=== PATIENT | female | born 1995 | race Caucasian/White ===

== ENCOUNTER 2022-01-02 15:41 | Emergency (ER) | payer MEDICAID ==
[~2022-01-02] VITALS: Ht 160 cm; Wt 113.0 kg
[2022-01-02] MEDS ORDERED: DOXY100T2 PO (16:06)
--- NOTE | 2022-01-02 16:06 | ED Integumentary General ---
General Source: patient Exam Limitations: no limitations History of Present Illness Date Seen by Provider: Jan 02, 2022 Time Seen by Provider: 15:55 Initial Comments Patient to the ER by private conveyance from home with chief complaint that just prior to arrival her aunts cat scratched her up. The cat is and has been cantankerous lately but acting normally. It is up-to-date on rabies vaccination. She has an allergy to tetanus vaccination. She had her last menstrual period 12/22/2021. She is on oral contraceptives. Allergies and Home Medications Patient Home Medication List Home Medication List Reviewed: Yes Review of Systems Review of Systems Constitutional: No chills, No diaphoresis EENTM: No ear discharge, No ear pain Respiratory: No cough, No short of breath Cardiovascular: No chest pain, No edema Gastrointestinal: No abdominal pain, No constipation Genitourinary: No discharge, No dysuria All Other Systems Reviewed Negative Unless Noted: Yes Past Pxgihuu-Lfthjj-Caoaus Hx Patient Social History Tobacco Use?: No Use of E-Cig and/or Vaping dev: Yes E-Cig or Vaping type used: Other Substance use?: Yes Substance type: Marijuana Alcohol Use?: Yes Alcohol type: Beer Alcohol Frequency: Rarely Physical Exam Vital Signs Capillary Refill : General Appearance: WD/WN, no apparent distress HEENT: PERRL/EOMI, normal ENT inspection, TMs normal, pharynx normal Neck: non-tender, full range of motion, supple, normal inspection Cardiovascular: normal peripheral pulses, regular rate, rhythm Respiratory: lungs clear, normal breath sounds, no respiratory distress, no acc essory muscle use Skin: other (Superficial scratches with mild erythematous tenderness around her left forearm dorsal side and on her left shoulder. No palpable foreign object. No purulence or surrounding erythema.) Progress/Results/Core Measures Progress Progress Note : Time: 16:02 Progress Note The patient declined pain films to rule out broken claws. She says she has an allergy to tetanus. The cat is rabies vaccinated and can be watched. She declined to have animal control involved. We gave her return precautions for any symptoms of the cat acting rabid and will put her on an antibiotic to prevent infection, doxycycline twice daily. She is on control and has an LMP 2 weeks ago. Departure Impression Primary Impression: Cat scratch of left forearm Qualified Codes: S50.812A - Abrasion of left forearm, initial encounter; W5 5.03XA - Scratched by cat, initial encounter Disposition: 01 HOME, SELF-CARE Condition: Stable Departure-Patient Inst. Decision time for Depature: 16:04 Referrals: UNKNOWN (PCP/Family) Primary Care Physician Patient Instructions: Skin Abrasions (DC) Add. Discharge Instructions: Keep the wounds clean with regular soap and water only. Do not use hydrogen peroxide, alcohol, iodine or chlorhexidine as this will delay wound healing. Dress the wounds with clean Band-Aids daily as necessary. Doxycycline 1 tablet with food twice a day for 5 days to prevent infection. Watch the cat for the next 10 days and as long as she is acting normally you do not need to do anything differently. If the cat begins to behave in an irrational manner then return to the nearest ER immediately. Scripts Doxycycline Hyclate (Doxycycline Hyclate) 100 Mg Tablet 100 MG PO BID for 5 Days, #10 TAB 0 Refills Prov: LEON GAITAN 01/02/22 LEON GAITAN Jan 02, 2022 16:06
[2022-01-02 16:13] VITALS: BP 124/81
== END 2022-01-02 16:13 | disposition home or self-care (01) ==
LOC: ER 15:49
DX: S50.812A Abrasion of left forearm, initial encounter (principal); W55.03XA Scratched by cat, initial encounter

== ENCOUNTER 2022-09-28 18:34 | Emergency (ER) | payer MEDICARE, MEDICAID ==
[~2022-09-28] VITALS: Ht 160 cm; Wt 116.0 kg
[~2022-09-28 18:34] MED LIST: DOXY100T2 PO
[2022-09-28 19:04] LABS: BILIRUBIN,URINE NEGATIVE (NEGATIVE); CLARITY,URINE CLEAR; COLOR,URINE YELLOW; GLUCOSE, URINE (UA) NEGATIVE (NEGATIVE); KETONES,URINE NEGATIVE (NEGATIVE); LEUKOCYTE ESTERASE ,URINE 1+ (NEGATIVE); NITRITE,URINE POSITIVE (NEGATIVE); PH,URINE 6.5 (5-9); PROTEIN,URINE NEGATIVE (NEGATIVE)
[2022-09-28 19:05] LABS: BASOPHILS # (AUTO) 0.1 10^3/uL (0.0-0.1); BASOPHILS % (AUTO) 0 % (0-10); EOSINOPHILS # (AUTO) 0.4 10^3/uL (0.0-0.3); EOSINOPHILS % (AUTO) 3 % (0-10); HEMATOCRIT 34 % (35-52); HEMOGLOBIN 10.7 g/dL (11.5-16.0); LYMPHOCYTES # (AUTO) 2.3 10^3/uL (1.0-4.0); LYMPHOCYTES % (AUTO) 19 % (12-44); MEAN CORPUSCULAR HEMOGLOBIN 26 pg (25-34); MEAN CORPUSCULAR HGB CONC 31 g/dL (32-36); MEAN CORPUSCULAR VOLUME 82 fL (80-99); MEAN PLATELET VOLUME 10.6 fL (9.0-12.2); MONOCYTES # (AUTO) 0.6 10^3/uL (0.0-1.0); MONOCYTES % (AUTO) 5 % (0-12); NEUTROPHILS # (AUTO) 8.6 10^3/uL (1.8-7.8); NEUTROPHILS % (AUTO) 72 % (42-75); PLATELET COUNT 404 10^3/uL (130-400); WHITE BLOOD COUNT 11.9 10^3/uL (4.3-11.0)
[2022-09-28 19:17] LABS: ALBUMIN 4.2 GM/DL (3.2-4.5); POTASSIUM 3.5 MMOL/L (3.6-5.0)
[2022-09-28 19:19] LABS: CALCIUM 8.7 MG/DL (8.5-10.1)
[2022-09-28 19:20] LABS: TOTAL PROTEIN 7.7 GM/DL (6.4-8.2)
--- NOTE | 2022-09-28 19:20 | ED Abdominal Pain ---
General Chief Complaint: Abdominal/GI Problems Stated Complaint: LOWER ABD PAIN/VOMITING/NAUSEA Nursing Triage Note: RLQ PAIN X3 DAYS WITH NAUSEA. Source of Information: Patient Exam Limitations: No Limitations History of Present Illness Date Seen by Provider: Sep 28, 2022 Time Seen by Provider: 18:40 Initial Comments Patient is a 26-year-old female who presents to the emergency department with right lower quadrant pain for 3 days along with some nausea. Patient denies any fever, chest pain, urinary symptoms. Denies any abnormal vaginal discharge. Denies any recent abdominal trauma. Allergies and Home Medications Allergies Coded Allergies: codeine (Verified Allergy, Severe, HIVES, 09/28/22) Uncoded Allergies: TDAP (Allergy, Unknown, 01/02/22) Patient Home Medication List Home Medication List Reviewed: Yes Ondansetron (Ondansetron Odt) 4 Mg Tab.rapdis, 4 MG SL Q4H PRN for NAUSEA/VOMITING Prescribed by: Senthil Laboy on 09/28/222022 Sulfamethoxazole/Trimethoprim (Bactrim Ds Tablet) 1 Each Tablet, 1 EACH PO BID Prescribed by: Senthil Laboy on 09/28/222022 Discontinued Medications Doxycycline Hyclate (Doxycycline Hyclate) 100 Mg Tablet, 100 MG PO BID Discontinued Reason: No Longer Taking Prescribed by: LEON GAITAN on 01/02/22 1606 Last Action: Discontinued Review of Systems Review of Systems Constitutional: no symptoms reported EENTM: No Symptoms Reported Respiratory: No Symptoms Reported Cardiovascular: No Symptoms Reported Gastrointestinal: See HPI, Abdominal Pain, Nausea Genitourinary: No Symptoms Reported Musculoskeletal: no symptoms reported Skin: no symptoms reported Psychiatric/Neurological: No Symptoms Reported Endocrine: No Symptoms Reported Hematologic/Lymphatic: No Symptoms Reported Past Cvgvlop-Siixro-Vmtdne Hx Patient Social History Tobacco Use?: Yes Use of E-Cig and/or Vaping dev: Yes Substance use?: No Alcohol Use?: Yes Alcohol Frequency: Once in a while Immunizations Up To Date First/Initial COVID19 Vaccinat: 11/14/21 Second COVID19 Vaccination Edwardo: UNKNOWN COVID19 Vaccine Funeral Greeter: MARIANA Past Medical History Last Menstrual Period: Sep 15, 2022 Physical Exam Vital Signs Vital Signs - First Documented 09/28/22 09/28/22 18:40 20:40 Temp 36.3 Pulse 100 Resp 16 B/P (MAP) 145/81 Pulse Ox 99 O2 Delivery Room Air Capillary Refill : Less Than 3 Seconds Height/Weight/BMI Height: '" Weight: lbs. oz. kg; 45.00 BMI Method: General Appearance: WD/WN, no apparent distress HEENT: PERRL/EOMI, normal ENT inspection, TMs normal, pharynx normal Neck: non-tender, full range of motion, supple, normal inspection Respiratory: chest non-tender, lungs clear, normal breath sounds, no respiratory distress Cardiovascular: regular rate, rhythm Gastrointestinal: normal bowel sounds, soft, tenderness Extremities: normal range of motion, non-tender Neurologic/Psychiatric: no motor/sensory deficits, alert, normal mood/affect, oriented x 3 Skin: normal color, warm/dry Progress/Results/Core Measures Results/Orders Lab Results Laboratory Tests Test 09/28/22 18:55 09/28/22 18:59 Range/Units White Blood Count 11.9 H 4.3-11.0 10^3/uL Red Blood Count 4.20 3.80-5.11 10^6/uL Hemoglobin 10.7 L 11.5-16.0 g/dL Hematocrit 34 L 35-52 % Mean Corpuscular Volume 82 80-99 fL Mean Corpuscular Hemoglobin 26 25-34 pg Mean Corpuscular Hemoglobin Concent 31 L 32-36 g/dL Red Cell Distribution Width 15.9 H 10.0-14.5 % Platelet Count 404 H 130-400 10^3/uL Mean Platelet Volume 10.6 9.0-12.2 fL Immature Granulocyte % (Auto) 1 % Neutrophils (%) (Auto) 72 42-75 % Lymphocytes (%) (Auto) 19 12-44 % Monocytes (%) (Auto) 5 0-12 % Eosinophils (%) (Auto) 3 0-10 % Basophils (%) (Auto) 0 0-10 % Neutrophils # (Auto) 8.6 H 1.8-7.8 10^3/uL Lymphocytes # (Auto) 2.3 1.0-4.0 10^3/uL Monocytes # (Auto) 0.6 0.0-1.0 10^3/uL Eosinophils # (Auto) 0.4 H 0.0-0.3 10^3/uL Basophils # (Auto) 0.1 0.0-0.1 10^3/uL Immature Granulocyte # (Auto) 0.1 0.0-0.1 10^3/uL Sodium Level 141 135-145 MMOL/L Potassium Level 3.5 L 3.6-5.0 MMOL/L Chloride Level 108 H 98-107 MMOL/L Carbon Dioxide Level 24 21-32 MMOL/L Anion Gap 9 5-14 MMOL/L Blood Urea Nitrogen 11 7-18 MG/DL Creatinine 0.60 0.60-1.30 MG/DL Estimat Glomerular Filtration Rate 128 BUN/Creatinine Ratio 18 Glucose Level 98 70-105 MG/DL Calcium Level 8.7 8.5-10.1 MG/DL Corrected Calcium 8.5 8.5-10.1 MG/DL Total Bilirubin 0.5 0.1-1.0 MG/DL Aspartate Amino Transf (AST/SGOT) 9 5-34 U/L Alanine Aminotransferase (ALT/SGPT) 12 0-55 U/L Alkaline Phosphatase 106 40-136 U/L Total Protein 7.7 6.4-8.2 GM/DL Albumin 4.2 3.2-4.5 GM/DL Urine Color YELLOW Urine Clarity CLEAR Urine pH 6.5 5-9 Urine Specific [place] 1.025 H 1.016-1.022 Urine Protein NEGATIVE NEGATIVE Urine Glucose (UA) NEGATIVE NEGATIVE Urine Ketones NEGATIVE NEGATIVE Urine Nitrite POSITIVE H NEGATIVE Urine Bilirubin NEGATIVE NEGATIVE Urine Urobilinogen 0.2 < = 1.0 MG/DL Urine Leukocyte Esterase 1+ H NEGATIVE Urine RBC (Auto) NEGATIVE NEGATIVE Urine RBC NONE /HPF Urine WBC 0-2 /HPF Urine Squamous Epithelial Cells 2-5 /HPF Urine Crystals NONE /LPF Urine Bacteria MODERATE H /HPF Urine Casts NONE /LPF Urine Mucus SMALL H /LPF Urine Yeast FEW H /HPF Urine Culture Indicated YES Urine Test NEGATIVE NEGATIVE My Orders Orders - SENTHIL LABOY [employer]CH[employer]UCATION [employer]ER Cbc With Automated Diff (09/28/22 18:53) Comprehensive Metabolic Panel (09/28/22 18:53) Ua Culture If Indicated (09/28/22 18:53) Iv/Invasive Line Insertion .IV INSERT (09/28/22 18:53) Ct Abdomen/Pelvis W (09/28/22 18:53) Hcg,Qualitative Urine (09/28/22 18:53) Iohexol Injection (Omnipaque 350 Mg/Ml 1 (09/28/22 19:45) Di Iv Start (Assessment) .IV start (09/28/22 19:32) Received Contrast (Hold Metformin- Contr (09/28/22 19:45) Ns (Ivpb) (Sodium Chloride 0.9% Ivpb Bag (09/28/22 19:45) Urine Culture (09/28/22 18:59) Medications Given in ED Vital Signs/I&O 09/28/22 09/28/22 18:40 20:40 Temp 36.3 36.8 Pulse 100 91 Resp 16 B/P (MAP) 145/81 Pulse Ox 99 97 O2 Delivery Room Air Room Air Progress Progress Note : Progress Note Patient is nontoxic and well-hydrated on exam. There is some right upper quadrant and suprapubic tenderness to palpation on abdominal exam. No abdominal distention or rigidity. Vital signs are reassuring. Laboratory evaluation with very mild leukocytosis but is otherwise reassuring. CT of the abdomen pelvis reveals no acute abnormality. Urinalysis nitrate positive with bacteriuria. Will treat for UTI with a course of Bactrim. Discussed supportive care and anticipatory guidance. Follow-up with PCP. Return precautions for urgent symptomology discussed. Patient verbalized understanding. Departure Impression Primary Impression: UTI (urinary tract infection) Qualified Codes: N30.00 - Acute cystitis without hematuria Disposition: HOME, SELF-CARE Condition: Stable Departure-Patient Inst. Decision time for Depature: 20:20 Referrals: [facility] [place] (PCP/Family) Primary Care Physician Patient Instructions: Urinary Tract Infection, Adult ED Scripts Ondansetron (Ondansetron Odt) 4 Mg Tab.rapdis 4 MG SL Q4H PRN for NAUSEA/VOMITING for 5 Days, #25 TAB 0 Refills Prov: SENTHIL LABOY APRN 09/28/22 Sulfamethoxazole/Trimethoprim (Bactrim Ds Tablet) 1 Each Tablet 1 EACH PO BID for 5 Days, #10 TAB 0 Refills Prov: SENTHIL LABOY APRN 09/28/22 SENTHIL LABOY APRN Sep 28, 2022 19:20
[2022-09-28 19:22] LABS: BILIRUBIN,TOTAL 0.5 MG/DL (0.1-1.0)
[2022-09-28 19:23] LABS: CREATININE SERUM 0.6 MG/DL (0.60-1.30)
[2022-09-28 19:37] LABS: BACTERIA,URINE MODERATE /HPF; WBC,URINE 0-2 /HPF; YEAST,URINE FEW /HPF
[2022-09-28] MEDS ORDERED: NS 100 ML (IVPB) BAG IV ONE (19:45)
[2022-09-28] MEDS ORDERED: HOLD METFORMIN - RECEIVED CONTRAST 20 ML VIAL IV SCH (19:45)
[2022-09-28] MEDS ORDERED: IOHEXOL 350 MG/ML 100 ML (OMNIPAQUE 350) VIAL IV ONE (19:45)
--- NOTE | 2022-09-28 20:04 | Diagnostic Imaging Report ---
CT ABDOMEN/PELVIS W TECHNIQUE: Multiple contiguous axial images were obtained through the abdomen and pelvis after administration of intravenous contrast. All CT scans use one or more of the following dose optimizing techniques: automated exposure control, MA and/or KvP adjustment based on patient size and exam type or iterative reconstruction. INDICATION: Right upper and lower quadrant pain COMPARISON: None available. FINDINGS: Lower chest: The lung bases are clear. No pericardial or pleural effusion. Peritoneum: No free intraperitoneal air or fluid. Liver and biliary system: The liver is normal. The gallbladder is normal. No biliary duct dilation. Spleen and Pancreas: Spleen is normal. The pancreas enhances normally without mass lesion or peripancreatic inflammatory changes. Adrenals: Normal. tract: The kidneys enhance normally without suspicious mass or obstruction. Urinary bladder is distended without wall thickening. Uterus and ovaries are normal in appearance. GI tract: Stomach is filled with fluid and food debris. No bowel obstruction. No pericolonic inflammatory changes. Normal appendix. Vasculature and Lymph nodes: Normal caliber aorta. No abdominal or pelvic lymphadenopathy. Musculoskeletal: No concerning osseous lesion. IMPRESSION: No acute intra-abdominal abnormality. Dictated by: Dictated on workstation # [id number]
[2022-09-28] MEDS ORDERED: ONDA4TAB11 SL (20:23)
[2022-09-28] MEDS ORDERED: SULF1TAB38 PO (20:23)
[2022-09-28 20:40] VITALS: BP 145/81
== END 2022-09-28 20:43 | disposition home or self-care (01) ==
LOC: EDUNIT# 18:34 → ER 18:37
DX: N39.0 Urinary tract infection, site not specified (principal); F17.290 Nicotine dependence, other tobacco product, uncomplicated; Z32.02 Encounter for pregnancy test, result negative
CPT/HCPCS: 36415; 74177; 80053; 81000; 84703; 85025; 87088

== ENCOUNTER 2022-10-10 13:51 | Emergency (ER) | payer MEDICARE, MEDICAID ==
[~2022-10-10] VITALS: Ht 160 cm; Wt 120.8 kg
[~2022-10-10 13:51] MED LIST changes: +ONDA4TAB11 SL; +SULF1TAB38 PO
[2022-10-10 14:55] LABS: BASOPHILS # (AUTO) 0.1 10^3/uL (0.0-0.1); BASOPHILS % (AUTO) 0 % (0-10); EOSINOPHILS # (AUTO) 0.4 10^3/uL (0.0-0.3); EOSINOPHILS % (AUTO) 3 % (0-10); HEMATOCRIT 34 % (35-52); HEMOGLOBIN 10.3 g/dL (11.5-16.0); LYMPHOCYTES # (AUTO) 2.1 10^3/uL (1.0-4.0); LYMPHOCYTES % (AUTO) 18 % (12-44); MEAN CORPUSCULAR HEMOGLOBIN 25 pg (25-34); MEAN CORPUSCULAR HGB CONC 31 g/dL (32-36); MEAN CORPUSCULAR VOLUME 81 fL (80-99); MEAN PLATELET VOLUME 10.4 fL (9.0-12.2); MONOCYTES # (AUTO) 0.6 10^3/uL (0.0-1.0); MONOCYTES % (AUTO) 6 % (0-12); NEUTROPHILS # (AUTO) 8.3 10^3/uL (1.8-7.8); NEUTROPHILS % (AUTO) 73 % (42-75); PLATELET COUNT 391 10^3/uL (130-400); WHITE BLOOD COUNT 11.5 10^3/uL (4.3-11.0)
--- NOTE | 2022-10-10 14:56 | ED Abdominal Pain ---
General Chief Complaint: OB < 20 WEEKS Stated Complaint: ABD PAIN Nursing Triage Note: PT AMB TO ED BY POV WITH C/O INTERMITTENT LOWER ABD PAIN X 2 DAYS. PT HAS HAD POSITIVE TEST. LMP Sep. Source of Information: Patient Exam Limitations: No Limitations History of Present Illness Date Seen by Provider: Oct 10, 2022 Time Seen by Provider: 14:42 Initial Comments 26-year-old female presents with right lower abdominal pain for the last 2 to 3 days. Patient reports she had a positive test on [place]. Reports last menstrual was 09/15. Denies any vaginal bleeding or abnormal discharge. Denies dysuria, denies nausea, vomiting. Location: RLQ Allergies and Home Medications Allergies Coded Allergies: codeine (Verified Allergy, Severe, HIVES, 09/28/22) Uncoded Allergies: TDAP (Allergy, Unknown, 01/02/22) Patient Home Medication List Home Medication List Reviewed: Yes Metronidazole (Metronidazole) 500 Mg Tablet, 500 MG PO BID Prescribed by: Linda Bradford on 10/10/22 1619 Ondansetron (Ondansetron Odt) 4 Mg Tab.rapdis, 4 MG SL Q4H PRN for NAUSEA/VOMITING Prescribed by: Senthil Laboy on 09/28/222022 Sulfamethoxazole/Trimethoprim (Bactrim Ds Tablet) 1 Each Tablet, 1 EACH PO BID Prescribed by: Senthil Laboy on 09/28/222022 Review of Systems Review of Systems Constitutional: see HPI Past Mvmlehf-Vawsvg-[place] Hx Patient Social History Tobacco Use?: No Use of E-Cig and/or Vaping dev: No Substance use?: No Alcohol Use?: No Pt feels they are or have been: No Immunizations Up To Date Influenza Vaccine Up-to-Date: Yes; Up-to-Date First/Initial COVID19 Vaccinat: UNKNOWN Second COVID19 Vaccination Edwardo: UNKNOWN Third COVID19 Vaccination Date: UNKNOWN Past Medical History Surgery/Hospitalization HX: TONSILECTOMY Last Menstrual Period: Sep 15, 2022 Physical Exam Vital Signs Vital Signs - First Documented 10/10/22 14:02 Temp 37.0 Pulse 96 Resp 16 B/P (MAP) 137/84 (101) Pulse Ox 97 O2 Delivery Room Air Capillary Refill : Less Than 3 Seconds Height/Weight/BMI Height: '" Weight: lbs. oz. kg; 47.00 BMI Method: General Appearance: WD/WN, no apparent distress Neck: supple, normal inspection Respiratory: lungs clear, normal breath sounds, no respiratory distress, no accessory muscle use Cardiovascular: regular rate, rhythm, no edema, no gallop, no JVD, no murmur Gastrointestinal: normal bowel sounds, soft, no organomegaly, no pulsatile mass, tenderness (RLQ near groin) Extremities: normal range of motion, normal inspection Pelvic: normal external exam, discharge, other (closed os) Neurologic/Psychiatric: alert, normal mood/affect, oriented x 3 Skin: normal color, warm/dry Progress/Results/Core Measures Results/Orders Lab Results Laboratory Tests Test 10/10/22 14:30 10/10/22 14:47 10/10/22 15:40 Range/Units Urine Color YELLOW Urine Clarity CLEAR Urine pH 7.0 5-9 Urine Specific [place] 1.020 1.016-1.022 Urine Protein NEGATIVE NEGATIVE Urine Glucose (UA) NEGATIVE NEGATIVE Urine Ketones NEGATIVE NEGATIVE Urine Nitrite NEGATIVE NEGATIVE Urine Bilirubin NEGATIVE NEGATIVE Urine Urobilinogen 1.0 < = 1.0 MG/DL Urine Leukocyte Esterase NEGATIVE NEGATIVE Urine RBC (Auto) NEGATIVE NEGATIVE Urine RBC RARE /HPF Urine WBC RARE /HPF Urine Squamous Epithelial Cells 0-2 /HPF Urine Crystals NONE /LPF Urine Bacteria NEGATIVE /HPF Urine Casts NONE /LPF Urine Mucus NEGATIVE /LPF Urine Culture Indicated NO White Blood Count 11.5 H 4.3-11.0 10^3/uL Red Blood Count 4.14 3.80-5.11 10^6/uL Hemoglobin 10.3 L 11.5-16.0 g/dL Hematocrit 34 L 35-52 % Mean Corpuscular Volume 81 80-99 fL Mean Corpuscular Hemoglobin 25 25-34 pg Mean Corpuscular Hemoglobin Concent 31 L 32-36 g/dL Red Cell Distribution Width 16.0 H 10.0-14.5 % Platelet Count 391 130-400 10^3/uL Mean Platelet Volume 10.4 9.0-12.2 fL Immature Granulocyte % (Auto) 0 % Neutrophils (%) (Auto) 73 42-75 % Lymphocytes (%) (Auto) 18 12-44 % Monocytes (%) (Auto) 6 0-12 % Eosinophils (%) (Auto) 3 0-10 % Basophils (%) (Auto) 0 0-10 % Neutrophils # (Auto) 8.3 H 1.8-7.8 10^3/uL Lymphocytes # (Auto) 2.1 1.0-4.0 10^3/uL Monocytes # (Auto) 0.6 0.0-1.0 10^3/uL Eosinophils # (Auto) 0.4 H 0.0-0.3 10^3/uL Basophils # (Auto) 0.1 0.0-0.1 10^3/uL Immature Granulocyte # (Auto) 0.0 0.0-0.1 10^3/uL Sodium Level 138 135-145 MMOL/L Potassium Level 3.8 3.6-5.0 MMOL/L Chloride Level 106 98-107 MMOL/L Carbon Dioxide Level 24 21-32 MMOL/L Anion Gap 8 5-14 MMOL/L Blood Urea Nitrogen 11 7-18 MG/DL Creatinine 0.64 0.60-1.30 MG/DL Estimat Glomerular Filtration Rate 126 BUN/Creatinine Ratio 17 Glucose Level 91 70-105 MG/DL Calcium Level 9.4 8.5-10.1 MG/DL Corrected Calcium 9.4 8.5-10.1 MG/DL Total Bilirubin 0.4 0.1-1.0 MG/DL Aspartate Amino Transf (AST/SGOT) 14 5-34 U/L Alanine Aminotransferase (ALT/SGPT) 21 0-55 U/L Alkaline Phosphatase 82 40-136 U/L Total Protein 7.6 6.4-8.2 GM/DL Albumin 4.0 3.2-4.5 GM/DL Human Chorionic Gonadotropin, Quant 1728 H <5 MIU/ML Micro Results Microbiology 10/10/22 Wet Prep - Final, Complete My Orders Orders - LINDA BRADFORD APRN Cbc With Automated Diff (10/10/22 14:41) Hcg,Quantitative (10/10/22 14:41) Abo Rh Type (10/10/22 14:41) Comprehensive Metabolic Panel (10/10/22 14:41) Ua Culture If Indicated (10/10/22 14:41) Urine Bedside (10/10/22 14:56) Wet Prep (10/10/22 15:42) Neisseria Gonorrhea Swab (10/10/22 15:42) Chlamydia Trachomatis Swab (10/10/22 15:42) Metronidazole Tablet (Flagyl Tablet) (10/10/22 16:15) Medications Given in ED Current Medications Medications Dose Ordered Sig/Vinod Route Start Time Stop Time Status Last Admin Dose Admin Metronidazole 500 mg ONCE ONCE PO 10/10/22 16:15 10/10/22 16:16 DC 10/10/22 16:12 500 MG Vital Signs/I&O 10/10/22 10/10/22 14:02 16:19 Temp 37.0 Pulse 96 108 Resp 16 16 B/P (MAP) 137/84 (101) 135/63 Pulse Ox 97 98 O2 Delivery Room Air Room Air Blood Pressure Mean: 101 Progress Progress Note #1: Time: 14:42 Progress Note Patient seen and evaluated. CBC, CMP, hCG, UA, Abo Rh Type ordered. Progress Note #2: Time: :43 Progress Note Lab results discussed with patient. Informed patient of normal hCG level. Pelvic exam completed with David NEUMANN aligner. Cervix is closed. Moderate amount of white/yellow discharge noted. Swabs obtained for wet mount and GC ch lamydia. Progress Note #3: Time: 16:10 Progress Note Clue cells noted to wet mount. First dose of Flagyl ordered here. Will send prescription for Flagyl. Progress Note #4: Time: 16:17 Progress Note Test results discussed with patient. Instructed to take full course of antibiotic, not to stop antibiotic if she begins to feel better. Return precautions provided. Patient struck to follow-up with [facility] she has an appointment on October 15. Departure Impression Primary Impression: Bacterial vaginosis Additional Impression: Qualified Codes: Z3A.01 - Less than 8 weeks gestation of Disposition: HOME, SELF-CARE Condition: Stable Departure-Patient Inst. Referrals: [facility] (PCP/Family) Primary Care Physician Patient Instructions: Bacterial Vaginosis (DC), - The First Month Add. Discharge Instructions: You have bacterial vaginosis. This is an infection of the vagina. I prescribed Flagyl, please take entire course of medication. Do not stop antibiotic if you begin to feel better. Follow-up with your [facility]. Return if you have any new or concerning symptoms, worsening abdominal pain, vaginal bleeding. All discharge instructions reviewed with patient and/or family. Voiced understanding. Scripts Metronidazole (Metronidazole) 500 Mg Tablet 500 MG PO BID for 7 Days, #14 TAB 0 Refills Prov: LINDA BRADFORD APRN 10/10/22 LINDA BRADFORD APRN Oct 10, 2022 14:56
[2022-10-10 15:03] LABS: POTASSIUM 3.8 MMOL/L (3.6-5.0)
[2022-10-10 15:04] LABS: CALCIUM 9.4 MG/DL (8.5-10.1)
[2022-10-10 15:06] LABS: TOTAL PROTEIN 7.6 GM/DL (6.4-8.2)
[2022-10-10 15:07] LABS: BILIRUBIN,TOTAL 0.4 MG/DL (0.1-1.0)
[2022-10-10 15:09] LABS: CREATININE SERUM 0.64 MG/DL (0.60-1.30)
[2022-10-10 15:15] LABS: BILIRUBIN,URINE NEGATIVE (NEGATIVE); CLARITY,URINE CLEAR; COLOR,URINE YELLOW; GLUCOSE, URINE (UA) NEGATIVE (NEGATIVE); KETONES,URINE NEGATIVE (NEGATIVE); LEUKOCYTE ESTERASE ,URINE NEGATIVE (NEGATIVE); NITRITE,URINE NEGATIVE (NEGATIVE); PROTEIN,URINE NEGATIVE (NEGATIVE)
[2022-10-10 15:28] LABS: BACTERIA,URINE NEGATIVE /HPF; RBC,URINE RARE /HPF; SQUAMOUS EPITHELIAL CELL,UR 0-2 /HPF; WBC,URINE RARE /HPF
[2022-10-10] MEDS ORDERED: metroNIDAZOLE 500 MG (FLAGYL) TAB PO ONE (16:15)
[2022-10-10 16:19] VITALS: BP 135/63
[2022-10-10] MEDS ORDERED: METR-145 PO (16:19)
== END 2022-10-10 16:19 | disposition home or self-care (01) ==
LOC: EDUNIT# 13:51 → ER 13:54
DX: O23.591 Infection of other part of genital tract in pregnancy, first trimester (principal); Z3A.01 Less than 8 weeks gestation of pregnancy
CPT/HCPCS: 36415; 80053; 81000; 84702; 84703; 85025; 86900; 86901; 87210; 87491; 87591; 99284

== ENCOUNTER 2022-11-02 19:49 | Emergency (ER) | payer MEDICARE, MEDICAID ==
[~2022-11-02] VITALS: Ht 160 cm; Wt 117.0 kg
[~2022-11-02 19:49] MED LIST changes: +METR-145 PO
[2022-11-02 20:00] VITALS: BP 119/82
--- NOTE | 2022-11-02 20:23 | ED EENT ---
History of Present Illness General Chief Complaint: Oral/Throat Problems Stated Complaint: SORE THROAT VAG BLEEDING, 6 WEEKS Nursing Triage Note: PT AMB TO ED BY POV WITH C/O SORE THROAT. PT REPORTS SORE THROAT BEGAN THIS MORNING, HAS NOT TAKEN ANYTHING FOR THE PAIN. PT ALSO C/O VAGINAL SPOTTING X3 DAYS, DENIES ANY ABD PAIN OR CRAMPING. LMP 09/15/22. Source: patient History of Present Illness Date Seen by Provider: Nov 02, 2022 Time Seen by Provider: 20:14 Initial Comments PT ARRIVES VIA POV FROM HOME C/O SORE THROAT SINCE THIS AM NO DIFFICULTY SWALLOWING NO URI SYMPTOMS NO FEVER SHE HAS HAD TONSILLECTOMY A CHILD SHE HAS NOT TAKEN ANYTHING FOR SYMPTOMS PT IS 6 WEEKS , FIRST OB APPOINTMENT 11/22/[address] HUSSEIN. SHE HAS HAD COVID VACCINE X 2, FLU VACCINE X 1 NO KNOWN SICK CONTACTS. PCP: MIA-RONALDO Allergies and Home Medications Allergies Coded Allergies: codeine (Verified Allergy, Severe, HIVES, 09/28/22) Uncoded Allergies: TDAP (Allergy, Unknown, 01/02/22) Patient Home Medication List Home Medication List Reviewed: Yes Metronidazole (Metronidazole) 500 Mg Tablet, 500 MG PO BID Prescribed by: Linda Bradford on 10/10/22 161 Ondansetron (Ondansetron Odt) 4 Mg Tab.rapdis, 4 MG SL Q4H PRN for NAUSEA/VOMITING Prescribed by: Senthil Laboy on 09/28/222022 Sulfamethoxazole/Trimethoprim (Bactrim Ds Tablet) 1 Each Tablet, 1 EACH PO BID Prescribed by: Senthil Laboy on 09/28/222022 Review of Systems Review of Systems Constitutional: no symptoms reported Eyes: No Symptoms Reported Ears: No Symptoms Reported Nose: no symptoms reported Mouth: no symptoms reported Throat: see HPI, pain Respiratory: no symptoms reported Cardiovascular: no symptoms reported Gastrointestinal: no symptoms reported : Yes Musculoskeletal: no symptoms reported Skin: no symptoms reported Neurological: No Symptoms Reported Hematologic/Lymphatic: No Symptoms Reported Past Rdxqzhv-Hwztbh-Cobfed Hx Patient Social History Tobacco Use?: No Use of E-Cig and/or Vaping dev: No Substance use?: No Alcohol Use?: No Pt feels they are or have been: No Immunizations Up To Date Influenza Vaccine Up-to-Date: Yes; Up-to-Date First/Initial COVID19 Vaccinat: YES Second COVID19 Vaccination Edwardo: Y Third COVID19 Vaccination Date: UNKNOWN Past Medical History Surgery/Hospitalization HX: TONSILECTOMY Surgeries: Yes Tonsillectomy Respiratory: No Cardiac: No Neurological: No : Yes Last Menstrual Period: Sep 15, 2022 Reproductive Disorders: No Genitourinary: No Gastrointestinal: No Musculoskeletal: No Endocrine: No HEENT: No Psychosocial: No Integumentary: No Blood Disorders: No Physical Exam Vital Signs Vital Signs - First Documented 11/02/22 20:00 Temp 36.7 Pulse 94 Resp 16 B/P (MAP) 119/82 (94) Pulse Ox 100 O2 Delivery Room Air Height, Weight, BMI Height: '" Weight: lbs. oz. kg; 45.00 BMI Method: General Appearance: WD/WN, no apparent distress, obese, other (DOES NOT APPEAR ILL OR TO BE IN ANY DISCOMFORT OR DISTRESS. TEXTING/PLAYING ON PHONE FOR ENTIRE EXAM, AND FOR ENTIRE ER STAY. ) Eyes: bilateral eye normal inspection Ears: bilateral ear auricle normal Nose: normal inspection Mouth/Throat: No trismus, No uvula swelling, No voice changes; other (VERY MILD PHARYNGEAL ERYTHEMA. NO EXUDATE. NO SWELLING . VOICE NORMAL) Neck: non-tender, full range of motion, supple, normal inspection; No lymphadenopathy (R), No lymphadenopathy (L) Cardiovascular: regular rate, rhythm, no murmur Respiratory: normal breath sounds, no respiratory distress, no accessory muscle use Gastrointestinal: non tender Neurologic/Psychiatric: no motor/sensory deficits, alert, normal mood/affect, oriented x 3 Skin: normal color, warm/dry; No rash Progress/Results/Core Measures Results/Orders Lab Results Laboratory Tests Test 11/02/22 20:27 Range/Units Influenza Type A (RT-PCR) Not Detected Not Detecte Influenza Type B (RT-PCR) Not Detected Not Detecte SARS-CoV-2 RNA (RT-PCR) Detected H Not Detecte Group A Streptococcus Screen NEGATIVE NEGATIVE My Orders Orders - TG BROWN DO Rapid Strep A Screen (11/02/22 20:20) Covid 19 Inhouse Test (11/02/22 20:20) Influenza A And B By Pcr (11/02/22 20:20) Isolation Central Supply Req (11/02/22 20:20) Rx-Nirmatrelvir/Ritonavir(Eua) (Rx-Paxlo (11/02/22 21:30) Vital Signs/I&O 11/02/22 20:00 Temp 36.7 Pulse 94 Resp 16 B/P (MAP) 119/82 (94) Pulse Ox 100 O2 Delivery Room Air Blood Pressure Mean: 94 Progress Progress Note : Progress Note PPE WORN COVID, FLU AND STREP TESTING DONE PT DOES NOT MENTION ANY COMPLAINTS TO ME AT ANY TIME DURING ENTIRE ER STAY. BLOOD TYPE IS AB+, PER PREVIOUS LAB RECORDS. REVIEWED OLD RECORDS--ALL HAVE BEEN ER VISITS. REVIEWED TEST RESULTS, ANTICIPATED COURSE, SYMPTOMATIC TREATMENT, MEDICATIONS, NEED FOR QUARANTINE, NEED FOR FOLLOW UP AND RETURN PRECAUTIONS DISCUSSED PAXLOVID TREATMENT OPTION AND PT WISHES TO START THIS TREATMENT. Departure Impression Primary Impression: COVID-19 virus infection Additional Impression: 6 weeks gestation of Disposition: 01 HOME, SELF-CARE Condition: Stable Departure-Patient Inst. Decision time for Depature: 21:15 Referrals: LEO DIGGS APRN (PCP) Primary Care Physician [facility] [place] Primary Care Physician GARLAND HUSSEIN MD Patient Instructions: COVID-19 and ED, Nirmatrelvir and Ritonavir FDA Fact Sheet, Preventing the Spread of an Infectious Disease Add. Discharge Instructions: QUARANTINE YOURSELF AND ALL HOUSEHOLD MEMBERS X 10 DAYS TYLENOL 1 GRAM EVERY 6 HOURS FOR PAIN OR FEVER OVER THE COUNTER FLONASE OR NASACORT FOR NASAL CONGESTION SALT WATER GARGLES AND CEPACOL LOZENGES FOR THROAT PAIN TAKE PAXLOVID DIRECTED FOLLOW UP WITH YOUR DR IN 3-4 DAYS IF NO BETTER, RETURN TO ER IF SYMPTOMS WORSEN All discharge instructions reviewed with patient and/or family. Voiced understanding. Work/School Note: Work Release Form Date Seen in the Emergency Department: Nov 02, 2022 Return to Work: Nov 12, 2022 TG BROWN DO Nov 02, 2022 20:23
[2022-11-02] MEDS ORDERED: RX-NIRMATRELVIR/RITONAVIR (PAXLOVID) #30 TABS PO SCH (21:30)
== END 2022-11-02 21:35 | disposition home or self-care (01) ==
LOC: EDUNIT# 19:49 → ER 19:50
DX: O98.511 Other viral diseases complicating pregnancy, first trimester (principal); U07.1 COVID-19; Z3A.01 Less than 8 weeks gestation of pregnancy
CPT/HCPCS: 87430; 87636; 99283

== ENCOUNTER 2022-11-14 19:23 | Emergency (ER) | payer MEDICARE, MEDICAID ==
[~2022-11-14] VITALS: Ht 160 cm; Wt 117.0 kg
--- NOTE | 2022-11-14 19:38 | ED Abdominal Pain ---
General Chief Complaint: Abdominal/GI Problems Stated Complaint: UPPER ABDOMINAL PAIN, 8 WEEKS Source of Information: Patient Exam Limitations: No Limitations History of Present Illness Date Seen by Provider: Nov 14, 2022 Time Seen by Provider: 19:30 Initial Comments Patient is a 27-year-old female who presents to the emergency department for evaluation of upper abdominal pain in the context of being approximately 8 weeks . Patient's LMP was 09/13. She has an appointment with her OB later this week. Denies any vaginal bleeding or lower abdominal cramping. Denies any alleviating or exacerbating factors in regards to her pain. States it is mostly in the middle of her upper abdomen. Denies any nausea/vomiting/diarrhea outside of her existing mild nausea that has been present for the last few weeks of her . Denies any worsening with eating. Allergies and Home Medications Allergies Coded Allergies: codeine (Verified Allergy, Severe, HIVES, 09/28/22) Uncoded Allergies: TDAP (Allergy, Unknown, 01/02/22) Patient Home Medication List Home Medication List Reviewed: Yes Metronidazole (Metronidazole) 500 Mg Tablet, 500 MG PO BID Prescribed by: Linda Bradford on 10/10/22 161 Ondansetron (Ondansetron Odt) 4 Mg Tab.rapdis, 4 MG SL Q4H PRN for NAUSEA/VOMITING Prescribed by: Senthil Laboy on 09/28/222022 Sucralfate (Sucralfate) 1 Gram Tablet, 1 GM PO ACHS Prescribed by: Senthil Laboy on 11/14/222033 Sulfamethoxazole/Trimethoprim (Bactrim Ds Tablet) 1 Each Tablet, 1 EACH PO BID Prescribed by: Senthil Laboy on 09/28/222022 Review of Systems Review of Systems Constitutional: no symptoms reported EENTM: No Symptoms Reported Respiratory: No Symptoms Reported Gastrointestinal: See HPI, Abdominal Pain Genitourinary: No Symptoms Reported Musculoskeletal: no symptoms reported Skin: no symptoms reported Psychiatric/Neurological: No Symptoms Reported Endocrine: No Symptoms Reported Hematologic/Lymphatic: No Symptoms Reported Past Mgxqszb-Wvpazl-Euipho Hx Immunizations Up To Date First/Initial COVID19 Vaccinat: YES Second COVID19 Vaccination Edwardo: Y Third COVID19 Vaccination Date: UNKNOWN Past Medical History Surgery/Hospitalization HX: TONSILECTOMY Surgeries: Yes Tonsillectomy Respiratory: No Cardiac: No Neurological: No Reproductive Disorders: No Genitourinary: No Gastrointestinal: No Musculoskeletal: No Endocrine: No HEENT: No Psychosocial: No Integumentary: No Blood Disorders: No Physical Exam Vital Signs Vital Signs - First Documented 11/14/22 19:31 Temp 36.2 Pulse 85 Resp 20 B/P (MAP) 120/63 (82) Pulse Ox 100 O2 Delivery Room Air Capillary Refill : Height/Weight/BMI Height: '" Weight: lbs. oz. kg; 45.00 BMI Method: General Appearance: WD/WN, no apparent distress HEENT: PERRL/EOMI, normal ENT inspection, TMs normal, pharynx normal Neck: non-tender, full range of motion, supple, normal inspection Respiratory: chest non-tender, lungs clear, normal breath sounds, no respira tory distress, no accessory muscle use Cardiovascular: regular rate, rhythm Gastrointestinal: normal bowel sounds, soft, tenderness Neurologic/Psychiatric: no motor/sensory deficits, alert, normal mood/affect, oriented x 3 Skin: normal color, warm/dry Progress/Results/Core Measures Results/Orders Lab Results Laboratory Tests Test 11/14/22 19:52 11/14/22 20:01 Range/Units White Blood Count 11.3 H 4.3-11.0 10^3/uL Red Blood Count 4.10 3.80-5.11 10^6/uL Hemoglobin 10.5 L 11.5-16.0 g/dL Hematocrit 33 L 35-52 % Mean Corpuscular Volume 81 80-99 fL Mean Corpuscular Hemoglobin 26 25-34 pg Mean Corpuscular Hemoglobin Concent 32 32-36 g/dL Red Cell Distribution Width 14.7 H 10.0-14.5 % Platelet Count 361 130-400 10^3/uL Mean Platelet Volume 10.5 9.0-12.2 fL Immature Granulocyte % (Auto) 0 % Neutrophils (%) (Auto) 78 H 42-75 % Lymphocytes (%) (Auto) 15 12-44 % Monocytes (%) (Auto) 4 0-12 % Eosinophils (%) (Auto) 3 0-10 % Basophils (%) (Auto) 0 0-10 % Neutrophils # (Auto) 8.9 H 1.8-7.8 10^3/uL Lymphocytes # (Auto) 1.6 1.0-4.0 10^3/uL Monocytes # (Auto) 0.5 0.0-1.0 10^3/uL Eosinophils # (Auto) 0.3 0.0-0.3 10^3/uL Basophils # (Auto) 0.0 0.0-0.1 10^3/uL Immature Granulocyte # (Auto) 0.0 0.0-0.1 10^3/uL Sodium Level 137 135-145 MMOL/L Potassium Level 3.9 3.6-5.0 MMOL/L Chloride Level 105 98-107 MMOL/L Carbon Dioxide Level 20 L 21-32 MMOL/L Anion Gap 12 5-14 MMOL/L Blood Urea Nitrogen 8 7-18 MG/DL Creatinine 0.61 0.60-1.30 MG/DL Estimat Glomerular Filtration Rate 127 BUN/Creatinine Ratio 13 Glucose Level 85 70-105 MG/DL Calcium Level 9.2 8.5-10.1 MG/DL Corrected Calcium 9.2 8.5-10.1 MG/DL Total Bilirubin 0.5 0.1-1.0 MG/DL Aspartate Amino Transf (AST/SGOT) 14 5-34 U/L Alanine Aminotransferase (ALT/SGPT) 23 0-55 U/L Alkaline Phosphatase 78 40-136 U/L Total Protein 7.8 6.4-8.2 GM/DL Albumin 4.0 3.2-4.5 GM/DL Lipase 15 8-78 U/L Urine Color YELLOW Urine Clarity CLEAR Urine pH 5.0 5-9 Urine Specific [place] 1.020 1.016-1.022 Urine Protein NEGATIVE NEGATIVE Urine Glucose (UA) NEGATIVE NEGATIVE Urine Ketones TRACE H NEGATIVE Urine Nitrite NEGATIVE NEGATIVE Urine Bilirubin NEGATIVE NEGATIVE Urine Urobilinogen 0.2 < = 1.0 MG/DL Urine Leukocyte Esterase 1+ H NEGATIVE Urine RBC (Auto) NEGATIVE NEGATIVE Urine RBC 0-2 /HPF Urine WBC 5-10 H /HPF Urine Squamous Epithelial Cells 25-50 H /HPF Urine Crystals NONE /LPF Urine Bacteria MODERATE H /HPF Urine Casts NONE /LPF Urine Mucus NEGATIVE /LPF Urine Culture Indicated YES Micro Results Microbiology 11/14/22 Urine Culture - Final, Complete Gram Pos Mixed Bacterial Becka See Comments My Orders Orders - SENTHIL LABOY FLOOR PRESS OPERATOR Cbc With Automated Diff (11/14/22 19:37) Comprehensive Metabolic Panel (11/14/22 19:37) Lipase (2/1/23 19:37) Urinalysis (11/14/22 19:37) Urine Culture (11/14/22 20:01) Antacid Suspension (Mylanta Suspension (11/14/22 20:30) Vital Signs/I&O 11/14/22 11/14/22 19:31 20:38 Temp 36.2 Pulse 85 86 Resp 20 20 B/P (MAP) 120/63 (82) 114/68 Pulse Ox 100 99 O2 Delivery Room Air Room Air Progress Progress Note : Progress Note Patient is nontoxic and well-hydrated on exam. Abdominal exam notable for epigastric tenderness to palpation. No rigidity or distention appreciated on abdominal exam. Vital signs are reassuring. Mclain sign negative. Orders placed for CBC, CMP, lipase, urinalysis. CBC notable for very mild leukocytosis and anemia. CMP unremarkable for any significant metabolic derangements. Lipase is not elevated. Urinalysis notable for very mild pyuria as well as moderate bacteria. Large amount of squamous epithelial cells also noted which makes this unlikely to be a clean-catch potentially contaminated. We will await urine culture results to guide any need for antimicrobial therapy. There is no transaminitis or other concerning findings on the diagnostic work-up today. She was given a dose of oral Mylanta with questionable improvement in symptoms. Gastritis/GERD is a possible etiology of symptoms. To this end patient was given a prescription for s ucralfate as this has been documented to be safe in . Discussed importance of close follow-up with PCP and/or [facility] for further evaluation and treatment. Return precautions for urgent symptomology discussed. Patient verbalized understanding. Departure Impression Primary Impression: Epigastric pain Disposition: HOME, SELF-CARE Condition: Stable Departure-Patient Inst. Decision time for Depature: 20:30 Referrals: [facility]/ (PCP) Primary Care Physician LEO DIGGS APRN (Family) Primary Care Physician Patient Instructions: Abdominal Pain, Adult ED Scripts Sucralfate (Sucralfate) 1 Gram Tablet 1 GM PO ACHS for 7 Days, #28 TAB 0 Refills Prov: SENTHIL LABOY APRN 11/14/22 SENTHIL LABOY APRN Nov 14, 2022 19:38
[2022-11-14 20:02] LABS: BASOPHILS % (AUTO) 0 % (0-10); EOSINOPHILS # (AUTO) 0.3 10^3/uL (0.0-0.3); EOSINOPHILS % (AUTO) 3 % (0-10); HEMATOCRIT 33 % (35-52); HEMOGLOBIN 10.5 g/dL (11.5-16.0); LYMPHOCYTES # (AUTO) 1.6 10^3/uL (1.0-4.0); LYMPHOCYTES % (AUTO) 15 % (12-44); MEAN CORPUSCULAR HEMOGLOBIN 26 pg (25-34); MEAN CORPUSCULAR HGB CONC 32 g/dL (32-36); MEAN CORPUSCULAR VOLUME 81 fL (80-99); MEAN PLATELET VOLUME 10.5 fL (9.0-12.2); MONOCYTES # (AUTO) 0.5 10^3/uL (0.0-1.0); MONOCYTES % (AUTO) 4 % (0-12); NEUTROPHILS # (AUTO) 8.9 10^3/uL (1.8-7.8); NEUTROPHILS % (AUTO) 78 % (42-75); PLATELET COUNT 361 10^3/uL (130-400); WHITE BLOOD COUNT 11.3 10^3/uL (4.3-11.0)
[2022-11-14 20:04] LABS: BILIRUBIN,URINE NEGATIVE (NEGATIVE); CLARITY,URINE CLEAR; COLOR,URINE YELLOW; GLUCOSE, URINE (UA) NEGATIVE (NEGATIVE); KETONES,URINE TRACE (NEGATIVE); LEUKOCYTE ESTERASE ,URINE 1+ (NEGATIVE); NITRITE,URINE NEGATIVE (NEGATIVE); PROTEIN,URINE NEGATIVE (NEGATIVE)
[2022-11-14 20:14] LABS: BACTERIA,URINE MODERATE /HPF; RBC,URINE 0-2 /HPF; SQUAMOUS EPITHELIAL CELL,UR 25-50 /HPF
[2022-11-14 20:15] LABS: POTASSIUM 3.9 MMOL/L (3.6-5.0)
[2022-11-14 20:16] LABS: CALCIUM 9.2 MG/DL (8.5-10.1)
[2022-11-14 20:17] LABS: TOTAL PROTEIN 7.8 GM/DL (6.4-8.2)
[2022-11-14 20:19] LABS: BILIRUBIN,TOTAL 0.5 MG/DL (0.1-1.0)
[2022-11-14 20:21] LABS: CREATININE SERUM 0.61 MG/DL (0.60-1.30)
[2022-11-14] MEDS ORDERED: ANTACID SUSP 30 ML UDC (MYLANTA) PO ONE (20:30)
[2022-11-14] MEDS ORDERED: SUCR1TAB PO (20:34)
[2022-11-14 20:38] VITALS: BP 114/68
== END 2022-11-14 20:39 | disposition home or self-care (01) ==
LOC: EDUNIT# 19:23 → ER 19:26
DX: O26.891 Other specified pregnancy related conditions, first trimester (principal); R10.13 Epigastric pain; O99.011 Anemia complicating pregnancy, first trimester; D64.9 Anemia, unspecified; O99.111 Other diseases of the blood and blood-forming organs and certain disorders involving the immune mechanism complicating pregnancy, first trimester; D72.829 Elevated white blood cell count, unspecified; O99.891 Other specified diseases and conditions complicating pregnancy; R82.81 Pyuria; R82.71 Bacteriuria; Z3A.08 8 weeks gestation of pregnancy
CPT/HCPCS: 36415; 80053; 81000; 83690; 85025; 87088; 99283

== ENCOUNTER 2023-03-16 20:55 | Outpatient (CLI) | payer MEDICARE, MEDICAID ==
[~2023-03-16] VITALS: Ht 160 cm; Wt 115.2 kg
[~2023-03-16 20:55] MED LIST changes: +SUCR1TAB PO
[2023-03-16 21:20] VITALS: BP 123/68
[2023-03-16 21:30] VITALS: BP 123/68
[2023-03-16 21:37] LABS: BILIRUBIN,URINE NEGATIVE (NEGATIVE); CLARITY,URINE CLEAR; COLOR,URINE YELLOW; GLUCOSE, URINE (UA) NEGATIVE (NEGATIVE); KETONES,URINE TRACE (NEGATIVE); LEUKOCYTE ESTERASE ,URINE NEGATIVE (NEGATIVE); NITRITE,URINE NEGATIVE (NEGATIVE); PROTEIN,URINE TRACE (NEGATIVE)
[2023-03-16 21:45] VITALS: BP 123/73
[2023-03-16 21:46] LABS: BACTERIA,URINE MODERATE /HPF; RBC,URINE RARE /HPF; WBC,URINE RARE /HPF
[2023-03-16] MEDS ORDERED: LACTATED RINGERS 1,000 ML IV ONE (21:59)
[2023-03-16] MEDS ORDERED: PREN-142 PO (23:54)
[2023-03-17] MEDS ORDERED: LACTATED RINGERS 1,000 ML IV SCH
--- NOTE | 2023-03-18 08:34 | Physician Query-Final Dx ---
JAGDISH,03/18/23 0834: Clinic Account Progress/Dx Physician Query: Please give diagnosis Please include # weeks gestation Date of Service Mar 16, 2023 at 20:55 TEDDY SAUCEDA MD 03/19/23 1045: Clinic Account Progress/Dx DIAGNOSIS: Diagnosis 27 weeks gestation Bleeding in second trimester Abdominal cramping Reassuring status and no regular uterine activity JAGDISH,OctMar 18, 2023 08:34 TEDDY SAUCEDA MD Mar 19, 2023 10:45
== END 2023-03-17 00:05 | disposition home or self-care (01) ==
LOC: WSo 20:55 → LDRP 20:56 → WSo 03-17 00:05
PROVIDERS: ATTEND Family Medicine
DX: O46.92 Antepartum hemorrhage, unspecified, second trimester (principal); O62.9 Abnormality of forces of labor, unspecified; Z3A.27 27 weeks gestation of pregnancy
CPT/HCPCS: 81000; 96360; G0463; 99213

== ENCOUNTER 2023-03-23 17:53 | Outpatient (CLI) | payer MEDICARE, MEDICAID ==
[~2023-03-23] VITALS: Ht 160 cm; Wt 115.8 kg
[~2023-03-23 17:53] MED LIST changes: +PREN-142 PO
[2023-03-23 18:25] VITALS: BP 111/53
[2023-03-23 18:38] LABS: BILIRUBIN,URINE NEGATIVE (NEGATIVE); CLARITY,URINE CLOUDY; COLOR,URINE YELLOW; GLUCOSE, URINE (UA) NEGATIVE (NEGATIVE); KETONES,URINE NEGATIVE (NEGATIVE); LEUKOCYTE ESTERASE ,URINE NEGATIVE (NEGATIVE); NITRITE,URINE NEGATIVE (NEGATIVE); PROTEIN,URINE NEGATIVE (NEGATIVE)
[2023-03-23 18:49] LABS: BACTERIA,URINE TRACE /HPF
[2023-03-23] MEDS ORDERED: LACTATED RINGERS 1,000 ML IV ONE (20:15)
[2023-03-23 21:15] VITALS: BP 109/63
--- NOTE | 2023-03-25 08:24 | Physician Query-Final Dx ---
JAGDISH,03/25/23 0824: Clinic Account Progress/Dx Physician Query: Please give diagnosis Please include # weeks gestation Date of Service Mar 23, 2023 at 17:53 FOREST PARKER DO 04/10/23 0920: Clinic Account Progress/Dx DIAGNOSIS: Diagnosis 29 wk GA contractions/uterine irritability - resolved ,OctMar 25, 2023 08:24 FOREST PARKER DO Apr 10, 2023 09:20
== END 2023-03-23 21:36 | disposition home or self-care (01) ==
LOC: WSo 17:53 → LDRP 17:54 → WSo 21:36
PROVIDERS: ATTEND Family Medicine
DX: O47.03 False labor before 37 completed weeks of gestation, third trimester (principal); Z3A.29 29 weeks gestation of pregnancy
CPT/HCPCS: 81000; G0463; 99213

== ENCOUNTER 2023-03-30 14:25 | Outpatient (CLI) | payer MEDICARE, MEDICAID ==
[~2023-03-30] VITALS: Ht 160 cm; Wt 115.3 kg
[2023-03-30 14:49] LABS: BILIRUBIN,URINE NEGATIVE (NEGATIVE); CLARITY,URINE CLEAR; COLOR,URINE YELLOW; GLUCOSE, URINE (UA) NEGATIVE (NEGATIVE); KETONES,URINE NEGATIVE (NEGATIVE); LEUKOCYTE ESTERASE ,URINE NEGATIVE (NEGATIVE); NITRITE,URINE NEGATIVE (NEGATIVE); PROTEIN,URINE NEGATIVE (NEGATIVE)
[2023-03-30 14:50] VITALS: BP 119/64
[2023-03-30 15:06] LABS: BACTERIA,URINE FEW /HPF
--- NOTE | 2023-04-01 08:34 | Physician Query-Final Dx ---
JAGDISH,04/01/23 0834: Clinic Account Progress/Dx Physician Query: Please give diagnosis Please include # weeks gestation Date of Service Mar 30, 2023 at 14:25 JESSICA CORRALES MD 04/17/23 2144: Clinic Account Progress/Dx DIAGNOSIS: Diagnosis 1. intrauterine third trimesternon-labor 2. Uterine irritabilityreassuring JAGDISH,OctApr 01, 2023 08:34 JESSICA CORRALES MD Apr 17, 2023 21:44
== END 2023-03-30 15:36 | disposition home or self-care (01) ==
LOC: WSo 14:25 → LDRP 14:26 → WSo 15:36
PROVIDERS: ATTEND Family Medicine
DX: Z34.93 Encounter for supervision of normal pregnancy, unspecified, third trimester (principal); Z3A.00 Weeks of gestation of pregnancy not specified
CPT/HCPCS: 81000; 87088; G0463; 99213

== ENCOUNTER 2023-05-25 21:10 | Outpatient (CLI) | payer MEDICAID, MEDICARE ==
[~2023-05-25] VITALS: Ht 156.5 cm; Wt 113.4 kg
[2023-05-25 21:30] VITALS: BP 124/58
[2023-05-25 21:56] LABS: CLARITY,URINE CLEAR; COLOR,URINE YELLOW; PROTEIN,URINE 1+ (NEGATIVE)
[2023-05-25 21:57] LABS: BACTERIA,URINE LARGE /HPF; GLUCOSE, URINE (UA) NEGATIVE (NEGATIVE); KETONES,URINE TRACE (NEGATIVE); LEUKOCYTE ESTERASE ,URINE 1+ (NEGATIVE); NITRITE,URINE NEGATIVE (NEGATIVE); RBC,URINE 0-2 /HPF; SQUAMOUS EPITHELIAL CELL,UR 25-50 /HPF; WBC,URINE 25-50 /HPF
[2023-05-25 21:59] LABS: BILIRUBIN,URINE 1+ (NEGATIVE)
[2023-05-25 22:04] VITALS: BP 119/63
[2023-05-25 22:20] VITALS: BP 115/65
[2023-05-25 22:34] VITALS: BP 111/58
[2023-05-25 22:49] VITALS: BP 112/61
[2023-05-25 23:45] VITALS: BP 112/61
--- NOTE | 2023-05-27 12:00 | Physician Query-Final Dx ---
Clinic Account Progress/Dx Physician Query: Please give diagnosis Please include # weeks gestation Date of Service May 25, 2023 at 21:10 WHEAT,OctMay 27, 2023 12:00
== END 2023-05-25 23:45 | disposition home or self-care (01) ==
LOC: WSo 21:10 → LDRP 21:11 → WSo 23:45
PROVIDERS: ATTEND Family Medicine
DX: O16.9 Unspecified maternal hypertension, unspecified trimester (principal); Z3A.00 Weeks of gestation of pregnancy not specified
CPT/HCPCS: 81000

== ENCOUNTER 2023-05-29 01:40 | Outpatient (CLI) | payer MEDICAID ==
[~2023-05-29] VITALS: Ht 160 cm; Wt 114.1 kg
[2023-05-29 01:45] VITALS: BP 133/70
--- NOTE | 2023-05-30 08:37 | Physician Query-Final Dx ---
JAGDISH05/30/23 0837: Clinic Account Progress/Dx Physician Query: Please give diagnosis Please include # weeks gestation Date of Service May 29, 2023 at 01:40 TEDDY SAUCEDA MD 05/30/23 1614: Clinic Account Progress/Dx DIAGNOSIS: Diagnosis Decreased movement Reactive NST 38 weeks gestation JAGDISH,OctMay 30, 2023 08:37 TEDDY SAUCEDA MD May 30, 2023 16:14
== END 2023-05-29 02:30 ==
LOC: LDRP 01:40 → WSo 01:40
PROVIDERS: ATTEND Family Medicine
DX: O36.8130 Decreased fetal movements, third trimester, not applicable or unspecified (principal); Z3A.38 38 weeks gestation of pregnancy
CPT/HCPCS: 99212

== ENCOUNTER 2023-05-31 00:26 | Outpatient (CLI) | payer MEDICAID ==
[~2023-05-31] VITALS: Ht 160 cm; Wt 113.0 kg
[2023-05-31 00:50] VITALS: BP 113/67
[2023-05-31 01:22] LABS: BACTERIA,URINE NEGATIVE /HPF; BILIRUBIN,URINE NEGATIVE (NEGATIVE); CLARITY,URINE CLEAR; COLOR,URINE YELLOW; GLUCOSE, URINE (UA) NEGATIVE (NEGATIVE); KETONES,URINE NEGATIVE (NEGATIVE); LEUKOCYTE ESTERASE ,URINE 1+ (NEGATIVE); NITRITE,URINE NEGATIVE (NEGATIVE); PROTEIN,URINE NEGATIVE (NEGATIVE)
[2023-05-31 02:02] VITALS: BP 109/55
--- NOTE | 2023-06-03 08:14 | Physician Query-Final Dx ---
Clinic Account Progress/Dx Physician Query: Please give diagnosis Please include # weeks gestation Date of Service May 31, 2023 at 00:26 WHEAT,OctJun 03, 2023 08:14
== END 2023-05-31 02:02 | disposition home or self-care (01) ==
LOC: WSo 00:26 → LDRP 00:27 → WSo 02:02
PROVIDERS: ATTEND Family Medicine
DX: O62.9 Abnormality of forces of labor, unspecified (principal); Z3A.38 38 weeks gestation of pregnancy
CPT/HCPCS: 81000; 87088; 99213

== ENCOUNTER 2023-06-06 16:23 | Outpatient (CLI) | payer MEDICAID ==
[~2023-06-06] VITALS: Ht 160 cm; Wt 113.9 kg
[2023-06-06 16:35] VITALS: BP 162/69
[2023-06-06 16:53] VITALS: BP 125/57
[2023-06-06 17:06] VITALS: BP 123/60
[2023-06-06 17:06] LABS: CLARITY,URINE CLEAR; COLOR,URINE YELLOW
[2023-06-06 17:07] LABS: AMORPHOUS SEDIMENT,UR RARE AMOR URATES /LPF; BACTERIA,URINE TRACE /HPF; BILIRUBIN,URINE NEGATIVE (NEGATIVE); GLUCOSE, URINE (UA) NEGATIVE (NEGATIVE); KETONES,URINE NEGATIVE (NEGATIVE); LEUKOCYTE ESTERASE ,URINE 1+ (NEGATIVE); NITRITE,URINE NEGATIVE (NEGATIVE); PROTEIN,URINE TRACE (NEGATIVE); RBC,URINE 0-2 /HPF; SQUAMOUS EPITHELIAL CELL,UR 25-50 /HPF
[2023-06-06 17:11] VITALS: BP 123/60
[2023-06-06 17:21] VITALS: BP 125/60
[2023-06-06 17:36] VITALS: BP 120/55
--- NOTE | 2023-06-07 08:16 | Physician Query-Final Dx ---
JAGDISH,06/07/23 0816: Clinic Account Progress/Dx Physician Query: Please give diagnosis Please include # weeks gestation Date of Service Jun 06, 2023 at 16:23 FOREST PARKER DO 06/07/23 1024: Clinic Account Progress/Dx DIAGNOSIS: Diagnosis 39 wk GA Contractions, not in active labor JAGDISH,OctJun 07, 2023 08:16 FOREST PARKER DO Jun 07, 2023 10:24
== END 2023-06-06 19:08 | disposition home or self-care (01) ==
LOC: WSo 16:23 → LDRP 16:23 → WSo 19:08
PROVIDERS: ATTEND Family Medicine
DX: O47.1 False labor at or after 37 completed weeks of gestation (principal); Z3A.39 39 weeks gestation of pregnancy
CPT/HCPCS: 81000; 82570; 84156; G0463; 99213

== ENCOUNTER 2023-06-08 21:05 | Outpatient (CLI) | payer MEDICAID ==
[~2023-06-08] VITALS: Ht 160 cm; Wt 117.0 kg
[2023-06-08 21:26] VITALS: BP 106/63
[2023-06-08 21:32] LABS: CLARITY,URINE CLEAR; COLOR,URINE YELLOW
[2023-06-08 21:33] LABS: BILIRUBIN,URINE NEGATIVE (NEGATIVE); GLUCOSE, URINE (UA) NEGATIVE (NEGATIVE); KETONES,URINE NEGATIVE (NEGATIVE); LEUKOCYTE ESTERASE ,URINE 3+ (NEGATIVE); NITRITE,URINE NEGATIVE (NEGATIVE); PROTEIN,URINE 1+ (NEGATIVE)
[2023-06-08 21:42] LABS: BACTERIA,URINE LARGE /HPF; WBC,URINE >100 /HPF
[2023-06-08] MEDS ORDERED: CEPHALEXIN 250 MG CAPSULE PO ONE (22:45)
[2023-06-08] MEDS ORDERED: ACETAMINOPHEN 500 MG TABLET PO ONE (22:45)
[2023-06-08] MEDS ORDERED: ACETAMINOPHEN 500 MG TABLET ONE (22:46)
[2023-06-08 22:50] VITALS: BP 119/65
[2023-06-08] MEDS ORDERED: diphenhydrAMINE 25 MG TABLET PO ONE ×2 (22:59→23:00)
[2023-06-09 00:04] VITALS: BP 131/88
[2023-06-09 00:10] VITALS: BP 131/88
--- NOTE | 2023-06-10 08:10 | Physician Query-Final Dx ---
Clinic Account Progress/Dx Physician Query: Please give diagnosis Please include # weeks gestation Date of Service Jun 08, 2023 at 21:05 WHEAT,OctJun 10, 2023 08:10
== END 2023-06-09 00:10 | disposition home or self-care (01) ==
LOC: WSo 21:05 → LDRP 21:06 → WSo 06-09 00:10
PROVIDERS: ATTEND Family Medicine
DX: O62.9 Abnormality of forces of labor, unspecified (principal); Z3A.39 39 weeks gestation of pregnancy
CPT/HCPCS: 81000; 87088; G0463; 99214

== ENCOUNTER 2023-06-11 18:32 | Inpatient (IN) | payer MEDICAID ==
[~2023-06-11] VITALS: Ht 160 cm; Wt 115.9 kg
[2023-06-11] MEDS ORDERED: LACTATED RINGERS 1,000 ML 1,000 ML IV SCH ×2 (19:15→19:30)
[2023-06-11] MEDS ORDERED: BUTORPHANOL INJ 2 MG/ML VIAL IV PRN (19:15)
[2023-06-11] MEDS ORDERED: ZOLPIDEM 5 MG (AMBIEN) TAB PO ONE (19:15)
[2023-06-11 19:30] VITALS: BP 122/61
[2023-06-11] MEDS ORDERED: LACTATED RINGERS 1,000 ML 500 ML IV PRN (19:30)
[2023-06-11] MEDS ORDERED: MINERAL OIL 30 ML UDC TOP PRN (19:30)
[2023-06-11 19:59] LABS: BASOPHILS % (AUTO) 0 % (0-10); EOSINOPHILS # (AUTO) 0.3 10^3/uL (0.0-0.3); EOSINOPHILS % (AUTO) 3 % (0-10); HEMATOCRIT 28 % (35-52); HEMOGLOBIN 8.4 g/dL (11.5-16.0); LYMPHOCYTES # (AUTO) 1.5 10^3/uL (1.0-4.0); LYMPHOCYTES % (AUTO) 16 % (12-44); MEAN CORPUSCULAR HEMOGLOBIN 25 pg (25-34); MEAN CORPUSCULAR HGB CONC 31 g/dL (32-36); MEAN CORPUSCULAR VOLUME 80 fL (80-99); MEAN PLATELET VOLUME 11.7 fL (9.0-12.2); MONOCYTES # (AUTO) 0.4 10^3/uL (0.0-1.0); MONOCYTES % (AUTO) 5 % (0-12); NEUTROPHILS # (AUTO) 7.1 10^3/uL (1.8-7.8); NEUTROPHILS % (AUTO) 75 % (42-75); PLATELET COUNT 272 10^3/uL (130-400); WHITE BLOOD COUNT 9.4 10^3/uL (4.3-11.0)
[2023-06-11 20:01] VITALS: BP 122/61
[2023-06-11] MEDS: D5 LR 1,000 ML IV SOLN 1,000 ML IV SCH (20:05)
[2023-06-11 20:11] LABS: BACTERIA,URINE FEW /HPF; BILIRUBIN,URINE NEGATIVE (NEGATIVE); CLARITY,URINE CLEAR; COLOR,URINE YELLOW; GLUCOSE, URINE (UA) NEGATIVE (NEGATIVE); KETONES,URINE NEGATIVE (NEGATIVE); LEUKOCYTE ESTERASE ,URINE 1+ (NEGATIVE); NITRITE,URINE NEGATIVE (NEGATIVE); PROTEIN,URINE NEGATIVE (NEGATIVE); WBC,URINE 0-2 /HPF
[2023-06-11] MEDS ORDERED: ZOLPIDEM 5 MG (AMBIEN) TAB ONE (22:37)
[2023-06-11 23:00] VITALS: BP 138/66
[2023-06-12] VITALS (22 sets, daily range): BP systolic 105–187; BP diastolic 57–126
[2023-06-12] MEDS: D5 LR 1,000 ML IV SOLN 1,000 ML IV SCH (05:54)
[2023-06-12] MEDS ORDERED: fentaNYL 2 mcg/ml BUPIVA 0.125 100 ML ONE (07:26)
[2023-06-12] MEDS ORDERED: fentaNYL INJECTION 100 MCG/2 ML VIAL ONE (08:55)
[2023-06-12] MEDS ORDERED: LIDOCAINE 2% w/EPI 1:200,000 20 ML VIAL ONE (10:08)
[2023-06-12] MEDS ORDERED: OXYTOCIN DRIP PRE-MIX 500 ML IV ONE ×2 (10:09→11:07)
[2023-06-12] MEDS: OXYTOCIN DRIP PRE-MIX 500 ML IV SCH ×2 (10:34→11:07)
--- NOTE | 2023-06-12 11:00 | History & Physical-OB ---
OB - Chief Complaint & HPI Date/Time Date of Admission: Date of Admission: Jun 11, 2023 at 18:32 Date seen by a Provider: Jun 12, 2023 Time Seen by a Provider: 08:30 Chief Complaint/History OB-Reason for Admission/Chief: Induction of Labor (elective) Hx : 2 Hx Para: 1 Expected Date of Delivery: Jun 12, 2023 Gestational Age in Weeks: 40 Gestational Age in Days: 0 History of Labs AB+, Ab neg, rub Imm RPR 1:1 throughout , treated her previous , ratios were monitored throughout HIV/HepB/C NR Normal 1 hr GTT GBS neg Allergies and Home Medications Allergies Coded Allergies: codeine (Verified Allergy, Severe, HIVES, 09/28/22) Patient Home Medication List Home Medication List Reviewed: Yes Vit No.124/Iron/FA ( Vitamin Tablet) 27 Mg Iron-800 Mcg Tablet, 1 EACH PO DAILY, (Reported) Entered as Reported by: PETER PALACIO on 03/16/23 2855 OB - History Hx of Present Care: Yes Ultrasounds: Normal mid trimester US, Other (Polyhydramnios @ 32 weeks resolved @ 36 weeks) Obstetrical Complications: None Medical Complications: Other (Obesity) Obstetrical History Hx : 2 Hx Para: 1 Hx # Term Pregnancies: 1 Number of Living Children: 1 Delivery History Hx Dystocia: Yes Hx Large For Gestational Age I: Yes Patient Past Medical History obesity h/o RPR positive s/p treatment Social History/Family History Alcohol Use: Denies Use Recreational Drug Use: No Smoking Cessation: Never smoker 2nd Hand Smoke Exposure: No Immunizations First/Initial COVID19 Vaccine: YES Second COVID19 Vaccination: Y Third COVID19 Vaccination Date: YES Tetanus Booster (TDap): Less than 5yrs Rubella: immune RPR/VDRL: Positive (Treated previous , ratio monitored throughout ) GBS Status: Negative HBsAG: Negative OB - Admission Exam Physical Exam Vitals: Vital Signs 06/11/23 06/12/23 23:00 05:52 Temp 36.4 Pulse 82 Resp 18 B/P (MAP) 128/60 (82) Pulse Ox 97 O2 Delivery Room Air HEENT: NCAT Heart: Rhythm Normal Lungs: Clear Abdomen: Gravid Cervical Dilatation: 6cm Effacement: 75% Station: 0 Membranes: Intact Heart Rate: 130's Accelerations: Accelerations Present Decelerations: No Decelerations Short Term Variability: Present Alf Variability: Average (6-25) Contractions on Admission: < 5 Minutes Apart Mendez Scoring Tool (Modified) Dilation (cm): 1-2cm (1) Effacement (%): 31-51% (1) Descent/Station: -1,0 (2) Cervix Consistency: Medium(1) Cervix Position: Middle/Mid-Position (1) Add 1 point for: Each previous vaginal delivery (1) Labs Laboratory Tests Test 06/11/23 19:35 06/11/23 19:36 Range/Units Rapid Plasma Reagin Nonreactive Nonreactive White Blood Count 9.4 4.3-11.0 10^3/uL Red Blood Count 3.42 L 3.80-5.11 10^6/uL Hemoglobin 8.4 L 11.5-16.0 g/dL Hematocrit 28 L 35-52 % Mean Corpuscular Volume 80 80-99 fL Mean Corpuscular Hemoglobin 25 25-34 pg Mean Corpuscular Hemoglobin Concent 31 L 32-36 g/dL Red Cell Distribution Width 16.5 H 10.0-14.5 % Platelet Count 272 130-400 10^3/uL Mean Platelet Volume 11.7 9.0-12.2 fL Immature Granulocyte % (Auto) 0 % Neutrophils (%) (Auto) 75 42-75 % Lymphocytes (%) (Auto) 16 12-44 % Monocytes (%) (Auto) 5 0-12 % Eosinophils (%) (Auto) 3 0-10 % Basophils (%) (Auto) 0 0-10 % Neutrophils # (Auto) 7.1 1.8-7.8 10^3/uL Lymphocytes # (Auto) 1.5 1.0-4.0 10^3/uL Monocytes # (Auto) 0.4 0.0-1.0 10^3/uL Eosinophils # (Auto) 0.3 0.0-0.3 10^3/uL Basophils # (Auto) 0.0 0.0-0.1 10^3/uL Immature Granulocyte # (Auto) 0.0 0.0-0.1 10^3/uL Urine Color YELLOW Urine Clarity CLEAR Urine pH 7.0 5-9 Urine Specific [place] 1.020 1.016-1.022 Urine Protein NEGATIVE NEGATIVE Urine Glucose (UA) NEGATIVE NEGATIVE Urine Ketones NEGATIVE NEGATIVE Urine Nitrite NEGATIVE NEGATIVE Urine Bilirubin NEGATIVE NEGATIVE Urine Urobilinogen 1.0 < = 1.0 MG/DL Urine Leukocyte Esterase 1+ H NEGATIVE Urine RBC (Auto) NEGATIVE NEGATIVE Urine RBC NONE /HPF Urine WBC 0-2 /HPF Urine Squamous Epithelial Cells 2-5 /HPF Urine Crystals NONE /LPF Urine Bacteria FEW H /HPF Urine Casts NONE /LPF Urine Mucus NEGATIVE /LPF Urine Culture Indicated YES Syphilis Total Antibody Positive H Negative OB - Assessment/Plan/Diagnosis Assessment Assessment: induction of labor Admission Dx Third trimester 40 week gestation Anemia in Admission Status: Inpatient Order (span 2 midnights) Reason for Inpatient Admission: Labor and post care Plan Other Plan 27 yo @ 40.0 wga here for elective IOL Plan - Cytotec protocol ON - AROM today 0900 clear - Epidural in place - GBS neg - Expectant management GARLAND HUSSEIN MD Jun 12, 2023 11:00
--- NOTE | 2023-06-12 11:02 | OB Labor & Delivery Record ---
Vag Delivery Note Vag Delivery Note Date of Delivery: 06/12/23 Preoperative Diagnosis: Jayne Smith is a (27 /Para / ,Gestational Age (wks)40.0 wga here for elecive IOL Postoperative Diagnosis: Same Surgeon: GARLAND HUSSEIN MD Sharepoint Specialist: None Anesthesia: Epidural Delivery Type: @ 1032 Findings: Viable Male , apgars 4/7/8, weight 8#12, 3970 grams Lacerations: 2nd degree perineal laceration Intact placenta with 3 vessel cord. Body Cord with avulsion at time of delivery Shoulder Dystocia 45sec Estimated Blood Loss: 200 ml Complications: None Condition: Stable Description of Procedure: The patient is a 27 year old female who presented for elective IOL. She was admitted and informed consent was obtained. Her labor course was unremarkable. She progressed to complete dilatation and began to push. She was then set up for delivery. The 's head was delivered atraumatically in the DONI position. Head was delivered @ 1031 and after 15 secs shoulder dystocia was called. Ronen was done and shoulder was still not delivered. Called for suprapubic pressure R to L and left anterior shoulder was then delivered after total time 45 secs. At delivery of body cord avulsion was noted and quickly clamped and was taken to warmer with nursery staff. required stimulation, PPV and CPT and had spontaneous respirations at 30 secs of life. An intact placenta with 3-vessel cord delivered via Sirisha and there was found to be moderate bleeding.~ Vigorous fundal massage was performed and the fundus was found to be firm. IV oxytocin was given. Examination of the vagina and perineum revealed a 2nd degree perineal laceration repaired in the usual fashion with 3-0 vicryl rapide suture. Following the repair, sponge, instrument and needle counts were correct. Mom and baby were both in stable condition in the labor suite. Vitals - Labs Vital Signs - I&O Vital Signs Date Time Temp Pulse Resp B/P (MAP) Pulse Ox O2 Delivery O2 Flow Rate FiO2 06/12/23 05:52 36.4 82 18 128/60 (82) Room Air 06/11/23 23:00 39.7 89 18 138/66 (90) 97 Room Air 06/11/23 20:01 36.9 95 18 122/61 (81) 97 Room Air 06/11/23 19:30 36.9 95 18 97 Room Air Labs Laboratory Tests 06/11/23 19:35: Rapid Plasma Reagin Nonreactive 06/11/23 19:36: White Blood Count 9.4, Red Blood Count 3.42L, Hemoglobin 8.4L, Hematocrit 28L, Mean Corpuscular Volume 80, Mean Corpuscular Hemoglobin 25, Mean Corpuscular Hemoglobin Concent 31L, Red Cell Distribution Width 16.5H, Platelet Count 272, Mean Platelet Volume 11.7, Immature Granulocyte % (Auto) 0, Neutrophils (%) (Auto) 75, Lymphocytes (%) (Auto) 16, Monocytes (%) (Auto) 5, Eosinophils (%) (Auto) 3, Basophils (%) (Auto) 0, Neutrophils # (Auto) 7.1, Lymphocytes # (Auto) 1.5, Monocytes # (Auto) 0.4, Eosinophils # (Auto) 0.3, Basophils # (Auto) 0.0, Immature Granulocyte # (Auto) 0.0, Urine Color YELLOW, Urine Clarity CLEAR, Urine pH 7.0, Urine Specific [place] 1.020, Urine Protein NEGATIVE, Urine Glucose (UA) NEGATIVE, Urine Ketones NEGATIVE, Urine Nitrite NEGATIVE, Urine Bilirubin NEGATIVE, Urine Urobilinogen 1.0, Urine Leukocyte Esterase 1+H, Urine RBC (Auto) NEGATIVE, Urine RBC NONE, Urine WBC 0-2, Urine Squamous Epithelial Cells 2-5, Urine Crystals NONE, Urine Bacteria FEWH, Urine Casts NONE, Urine Mucus NEGATIVE, Urine Culture Indicated YES, Syphilis Total Antibody PositiveH Shoulder Dystocia Note Shoulder Dystocia Start Time of Delivery of HEAD: 10:31 HOB in lowered position: Yes Time of delivery of BODY: 10:32 Positional Maneuvers Ronen, Suprapubic: Right GARLAND HUSSEIN MD Jun 12, 2023 11:02
[2023-06-12] MEDS ORDERED: WITCH HAZEL(TUCKS) 40 EA JAR TOP PRN (11:15)
[2023-06-12] MEDS ORDERED: MEASLES, MUMPS, RUBELLA VACCINE (MMR) SQ ONE (11:15)
[2023-06-12] MEDS ORDERED: BENZOCAINE/MENTHOL (DERMOPLAST) 56 ML CAN TP PRN (11:15)
[2023-06-12] MEDS ORDERED: Tetanus/Diphtheria/Pertussis (Acell) ADULT Vaccine 0.5 ML IM ONE (11:15)
[2023-06-12] MEDS ORDERED: CARBOPROST 250 MCG/ML 1 ML AMPULE IM ONE (12:30)
[2023-06-12] MEDS: CARBOPROST 250 MCG/ML 1 ML AMPULE IM ONE (12:36)
[2023-06-12] MEDS ORDERED: NALOXONE 0.4 MG/ML 1 ML VIAL IV PRN (14:30)
[2023-06-12] MEDS ORDERED: fentaNYL 2 mcg/ml BUPIVA 0.125 100 ML EPI SCH (14:30)
[2023-06-12] MEDS ORDERED: CATHETER FLUSH 10 ML SYR IV PRN (14:30)
[2023-06-12] MEDS ORDERED: LACTATED RINGERS 1,000 ML 1,000 ML IV ONE (14:30)
[2023-06-12] MEDS: IBUPROFEN 600 MG TABLET PO SCH ×2 (15:01→21:34)
[2023-06-12] MEDS: ACETAMINOPHEN 500 MG TABLET PO SCH ×2 (15:02→21:34)
[2023-06-12] MEDS ORDERED: NS IV 500 ML 500 ML IV SCH (17:30)
[2023-06-12 18:00] LABS: HEMOGLOBIN 8.3 g/dL (11.5-16.0)
[2023-06-12] MEDS: DOCUSATE SODIUM 100 MG CAPSULE PO SCH (21:34)
[2023-06-13 00:55] VITALS: BP 123/60
[2023-06-13] MEDS: CARBOPROST 250 MCG/ML 1 ML AMPULE IM ONE (01:04)
[2023-06-13] MEDS: CATHETER FLUSH 10 ML SYR IV SCH ×5 (01:05→22:50)
[2023-06-13] MEDS: ACETAMINOPHEN 500 MG TABLET PO SCH ×4 (04:06→22:47)
[2023-06-13] MEDS: IBUPROFEN 600 MG TABLET PO SCH ×4 (04:06→22:47)
[2023-06-13 04:13] VITALS: BP 120/60
[2023-06-13 05:28] LABS: BASOPHILS % (AUTO) 0 % (0-10); EOSINOPHILS # (AUTO) 0.2 10^3/uL (0.0-0.3); EOSINOPHILS % (AUTO) 2 % (0-10); HEMATOCRIT 24 % (35-52); HEMOGLOBIN 7.2 g/dL (11.5-16.0); LYMPHOCYTES # (AUTO) 1.6 10^3/uL (1.0-4.0); LYMPHOCYTES % (AUTO) 17 % (12-44); MEAN CORPUSCULAR HEMOGLOBIN 25 pg (25-34); MEAN CORPUSCULAR HGB CONC 31 g/dL (32-36); MEAN CORPUSCULAR VOLUME 80 fL (80-99); MEAN PLATELET VOLUME 11.7 fL (9.0-12.2); MONOCYTES # (AUTO) 0.6 10^3/uL (0.0-1.0); MONOCYTES % (AUTO) 6 % (0-12); NEUTROPHILS % (AUTO) 74 % (42-75); PLATELET COUNT 217 10^3/uL (130-400); WHITE BLOOD COUNT 9.4 10^3/uL (4.3-11.0)
--- NOTE | 2023-06-13 08:28 | Anesthesia-Regional Post-Op ---
Regional Patient Condition Mental Status: Alert, Oriented x3 Circulation: Same as Pre-Op Headache: Absent Sensation: Full Recovery Motor Block: Absent Post Op Complications Complications None Follow Up Care/Instructions Patient Instructions None needed. Anesthesia/Patient Condition Patient is doing well, no complaints, stable vital signs, no apparent adverse anesthesia problems. No complications reported per nursing. SPRING HUFF CRNA Jun 13, 2023 08:28
[2023-06-13] MEDS ORDERED: IRON SUCROSE 200 MG/10 ML VIAL IV ONE (08:45)
[2023-06-13] MEDS ORDERED: MEASLES, MUMPS, RUBELLA VACCINE (MMR) SC ONE (09:00)
[2023-06-13 09:15] VITALS: BP 129/61
[2023-06-13] MEDS: FERROUS SULFATE 325 MG (IRON) TABLET PO SCH (09:31)
[2023-06-13] MEDS: PRENATAL VITAMIN TABLET PO SCH (09:32)
[2023-06-13] MEDS: DOCUSATE SODIUM 100 MG CAPSULE PO SCH ×2 (09:32→20:16)
--- NOTE | 2023-06-13 11:34 | Postpartum Progress Note ---
Note Note Day # 1 Subjective: Patient is without complaints. Ambulating, voiding. Tolerating a regular diet without nausea or vomiting. Normal lochia. Pain is well controlled with oral pain medications. Bottle feeding. States that she has some back pain. Objective: Physical Exam: General - Alert and oriented, no apparent distress Abdomen - Soft, appropriately tender to palpation, non-distended, fundus firm at umbilicus Extremities - no edema, negative Chon's bilaterally Assessment: 27 yo G3 now P2 post- day # 1, status post Spontaneous vaginal delivery @ 40 weeks. Recovering well, hemodynamically stable Anemia of acute blood loss Plan: Routine care. Bottle feeding infant Encourage ambulation. Venofer IV infusion today, will start PO iron Plan for discharge tomorrow with 6 week visit with Melody Vitals - Labs Vital Signs - I&O Vital Signs Date Time Temp Pulse Resp B/P (MAP) Pulse Ox O2 Delivery O2 Flow Rate FiO2 06/13/23 09:15 36.8 84 18 129/61 (83) 98 Room Air 06/13/23 04:13 36.8 89 18 120/60 (80) 98 Room Air 06/13/23 00:55 37.1 100 18 123/60 (81) 97 Room Air 06/12/23 21:30 36.8 87 18 105/68 (80) 98 Room Air 06/12/23 16:31 36.4 77 20 121/63 (82) 98 Room Air 06/12/23 12:02 82 20 124/58 (80) Room Air 06/12/23 11:48 86 20 120/58 (78) Room Air I & O 06/13/23 07:00 Intake Total 3000 ml Balance 3000 ml Labs Laboratory Tests 06/12/23 17:50: Hemoglobin 8.3L, Hematocrit 27L 06/12/23 21:51: Glucometer 63L 06/13/23 05:09: Hemoglobin 7.2L, Hematocrit 24L, White Blood Count 9.4, Red Blood Count 2.94L, Mean Corpuscular Volume 80, Mean Corpuscular Hemoglobin 25, Mean Corpuscular Hemoglobin Concent 31L, Red Cell Distribution Width 16.9H, Platelet Count 217, Mean Platelet Volume 11.7, Immature Granulocyte % (Auto) 0, Neutrophils (%) (Auto) 74, Lymphocytes (%) (Auto) 17, Monocytes (%) (Auto) 6, Eosinophils (%) (Auto) 2, Basophils (%) (Auto) 0, Neutrophils # (Auto) 7.0, Lymphocytes # (Auto) 1.6, Monocytes # (Auto) 0.6, Eosinophils # (Auto) 0.2, Basophils # (Auto) 0.0, Immature Granulocyte # (Auto) 0.0 Microbiology 06/11/23 Urine Culture - Final, Complete YEAST No Further Testing GARLAND HUSSEIN MD Jun 13, 2023 11:34
[2023-06-13] MEDS ORDERED: MEASLES, MUMPS, RUBELLA VACCINE (MMR) ONE (12:29)
[2023-06-13 12:45] VITALS: BP 121/63
[2023-06-13 16:30] VITALS: BP 125/64
[2023-06-13 22:47] VITALS: BP 110/73
[2023-06-14 04:51] VITALS: BP 109/62
[2023-06-14] MEDS: IBUPROFEN 600 MG TABLET PO SCH ×2 (04:51→11:14)
[2023-06-14] MEDS: ACETAMINOPHEN 500 MG TABLET PO SCH ×2 (04:51→11:14)
[2023-06-14 06:12] LABS: BASOPHILS % (AUTO) 1 % (0-10); EOSINOPHILS # (AUTO) 0.3 10^3/uL (0.0-0.3); EOSINOPHILS % (AUTO) 4 % (0-10); HEMATOCRIT 22 % (35-52); LYMPHOCYTES # (AUTO) 1.7 10^3/uL (1.0-4.0); LYMPHOCYTES % (AUTO) 24 % (12-44); MEAN CORPUSCULAR HEMOGLOBIN 25 pg (25-34); MEAN CORPUSCULAR HGB CONC 31 g/dL (32-36); MEAN CORPUSCULAR VOLUME 81 fL (80-99); MONOCYTES # (AUTO) 0.4 10^3/uL (0.0-1.0); MONOCYTES % (AUTO) 5 % (0-12); NEUTROPHILS # (AUTO) 4.8 10^3/uL (1.8-7.8); NEUTROPHILS % (AUTO) 66 % (42-75); PLATELET COUNT 215 10^3/uL (130-400); WHITE BLOOD COUNT 7.2 10^3/uL (4.3-11.0)
[2023-06-14 06:24] LABS: HEMOGLOBIN 6.8 g/dL (11.5-16.0)
[2023-06-14 09:00] VITALS: BP 126/67
[2023-06-14] MEDS ORDERED: IRON SUCROSE 200 MG/10 ML VIAL IV NR (09:00)
[2023-06-14] MEDS: PRENATAL VITAMIN TABLET PO SCH (09:12)
[2023-06-14] MEDS: FERROUS SULFATE 325 MG (IRON) TABLET PO SCH (09:12)
[2023-06-14] MEDS: DOCUSATE SODIUM 100 MG CAPSULE PO SCH (09:12)
--- NOTE | 2023-06-14 09:39 | Discharge Summary ---
Diagnosis/Chief Complaint Date of Admission Jun 11, 2023 at 18:32 Date of Discharge 06/14/23 Admission Diagnosis Admission Diagnosis Third Trimester 40 week gestation obesity in Discharge Diagnosis Term of male Discharge Summary-Simple/Stand Procedures Epidural Placement Discharge Physical Examination Allergies: Coded Allergies: codeine (Verified Allergy, Severe, HIVES, 09/28/22) Vitals & I&Os Vital Sign - Last 12Hours Date Time Temp Pulse Resp B/P (MAP) Pulse Ox O2 Delivery O2 Flow Rate FiO2 06/14/23 09:00 37.0 90 18 126/67 (86) 97 Room Air General Appearance: Alert, Oriented X3, No Acute Distress Respiratory: Clear to Auscultation, Normal Air Movement Cardiovascular: Regular Rate, No Murmurs Abdominal: Normal Bowel Sounds, Soft, No Tenderness Extremities: No Edema, No Tenderness/Swelling Neuro: Normal Speech Psych/Mental Status: Mental Status NL, Mood NL Hospital Course See final discharge diagnosis. Discussion & Recommendations 27 yo G3 now P2 delivered term male infant via @ 40 weeks Discharge Condition at discharge stable Instructions to patient/family Please see electronic discharge instructions given to patient. Discharge Medications Reviewed and agree with Discharge Medication list on patient's Discharge Instruction sheet GARLAND HUSSEIN MD Jun 14, 2023 09:39
[2023-06-14] MEDS ORDERED: IBUP-844 PO (09:40)
[2023-06-14] MEDS ORDERED: FERR325T24 PO (09:40)
--- NOTE | 2023-06-14 09:41 | Discharge Summary ---
Discharge Inst-Women's Serv Depart Medications New, Converted or Re-Newed RX: Transmitted to Pharmacy New Medications: Ferrous Sulfate (Ferosul) 325 Mg (65 Mg Iron) Tablet 325 MG PO DAILY, #30 TAB Ibuprofen (Ibu) 600 Mg Tablet 600 MG PO Q6H, #30 TAB Continued Medications: Vit No.124/Iron/FA ( Vitamin Tablet) 27 Mg Iron-800 Mcg Tablet 1 EACH PO DAILY, TAB Follow Up/Instructions Goal/Follow Up: 6 week with Melody Activity Activity: Activity as Tolerated Driving Instructions: You May Drive NO SMOKING: NO SMOKING Nothing Inside Vagina: No Douching, No [place]le, No Tampons Diet Discharge Diet: No Restrictions Symptoms to Report to DrJose: Bleeding Excessive, Fever Over 101 Degrees F Copies To 1: GARLAND HUSSEIN MD, HOLLY R MD Jun 14, 2023 09:41
[2023-06-14 11:40] VITALS: BP 126/67
== END 2023-06-14 11:40 | disposition home or self-care (01) | DRG 806 ==
LOC: LDRP 18:32
PROVIDERS: ADMIT Family Medicine; ATTEND Family Medicine
PROC: 10E0XZZ Delivery of Products of Conception, External Approach (ICD-10-PCS; principal; 2023-06-12)
PROC: 0KQM0ZZ Repair Perineum Muscle, Open Approach (ICD-10-PCS; 2023-06-12)
PROC: 10907ZC Drainage of Amniotic Fluid, Therapeutic from Products of Conception, Via Natural or Artificial Opening (ICD-10-PCS; 2023-06-12)
PROC: 3E033VJ Introduction of Other Hormone into Peripheral Vein, Percutaneous Approach (ICD-10-PCS; 2023-06-12)
DX: O99.214 Obesity complicating childbirth (principal); D62 Acute posthemorrhagic anemia; Z37.0 Single live birth; Z3A.40 40 weeks gestation of pregnancy; O99.02 Anemia complicating childbirth; O70.1 Second degree perineal laceration during delivery
CPT/HCPCS: 36415; 81000; 82947; 85014; 85018; 85025; 86592; 86780; 86850; 86900; 86901; 87088; 90707

== ENCOUNTER 2023-06-17 03:42 | Emergency (ER) | payer MEDICAID ==
[~2023-06-17] VITALS: Ht 160 cm; Wt 115.7 kg
[~2023-06-17 03:42] MED LIST changes: +FERR325T24 PO; +IBUP-844 PO
[2023-06-17 04:19] LABS: BASOPHILS % (AUTO) 0 % (0-10); EOSINOPHILS # (AUTO) 0.3 10^3/uL (0.0-0.3); EOSINOPHILS % (AUTO) 4 % (0-10); HEMATOCRIT 27 % (35-52); HEMOGLOBIN 7.8 g/dL (11.5-16.0); LYMPHOCYTES # (AUTO) 1.6 10^3/uL (1.0-4.0); LYMPHOCYTES % (AUTO) 17 % (12-44); MEAN CORPUSCULAR HEMOGLOBIN 25 pg (25-34); MEAN CORPUSCULAR HGB CONC 29 g/dL (32-36); MEAN CORPUSCULAR VOLUME 84 fL (80-99); MEAN PLATELET VOLUME 10.7 fL (9.0-12.2); MONOCYTES # (AUTO) 0.4 10^3/uL (0.0-1.0); MONOCYTES % (AUTO) 5 % (0-12); NEUTROPHILS # (AUTO) 6.6 10^3/uL (1.8-7.8); NEUTROPHILS % (AUTO) 73 % (42-75); PLATELET COUNT 295 10^3/uL (130-400); WHITE BLOOD COUNT 9.1 10^3/uL (4.3-11.0)
[2023-06-17] MEDS ORDERED: RT-ALBUTEROL HFA 8.5 GM INHALER IH STA (04:27)
--- NOTE | 2023-06-17 05:00 | ED General ---
General Chief Complaint: (<6 weeks) Stated Complaint: SOB,COUGH,GAVE 4 DAYS AGO Nursing Triage Note: PT AMB TO RM 6 W C/O SOA SX APPROX 0000. VAGINAL DELIVERY W DR. HUSSEIN ON 06/11/23, PT REPORTS SMALL AMOUNT OF VAGINAL BLEEDING. PT A&OX4, DENIES PAIN. Source of Information: Patient, Old Records Exam Limitations: No Limitations History of Present Illness Date Seen by Provider: Jun 17, 2023 Time Seen by Provider: 03:52 Initial Comments This 27 year old young lady presents to the ER 4 days with concerns about SOA. Chart was reviewed. She was noted to have significant anemia after with hemoglobin of 6.8. She was given iron supplementation but not transfused. She denies cough, fever, or excessive bleeding. She had childhood asthma but has not required treatment as an adult. Allergies and Home Medications Allergies Coded Allergies: codeine (Verified Allergy, Severe, HIVES, 09/28/22) Patient Home Medication List Home Medication List Reviewed: Yes Ferrous Sulfate (Ferosul) 325 Mg (65 Mg Iron) Tablet, 325 MG PO DAILY Prescribed by: GARLAND HUSSEIN on 06/14/23 0940 Ibuprofen (Ibu) 600 Mg Tablet, 600 MG PO Q6H Prescribed by: GARLAND HUSSEIN on 06/14/23 0940 Vit No.124/Iron/FA ( Vitamin Tablet) 27 Mg Iron-800 Mcg Tablet, 1 EACH PO DAILY, (Reported) Entered as Reported by: PETER PALACIO on 03/16/23 9138 Review of Systems Review of Systems Constitutional: no symptoms reported EENTM: no symptoms reported Respiratory: see HPI Cardiovascular: no symptoms reported Gastrointestinal: no symptoms reported Genitourinary: no symptoms reported : No Musculoskeletal: no symptoms reported Skin: no symptoms reported Psychiatric/Neurological: No Symptoms Reported Hematologic/Lymphatic: No Symptoms Reported Past Olamofq-Qnxoye-Hqvhio Hx Patient Social History Tobacco Use?: No Smoking Status: Former Smoker Use of E-Cig and/or Vaping dev: No Substance use?: No Alcohol Use?: No Immunizations Up To Date Tetanus Booster (TDap): Less than 5yrs First/Initial COVID19 Vaccinat: YES Second COVID19 Vaccination Edwardo: Y Third COVID19 Vaccination Date: YES Past Medical History Surgery/Hospitalization HX: TONSILLECTOMY Surgeries: Yes Tonsillectomy Respiratory: Yes Asthma (childhood) Cardiac: No Neurological: No Reproductive Disorders: No Genitourinary: No Gastrointestinal: No Musculoskeletal: No Endocrine: No HEENT: No Cancer: No Psychosocial: Yes Bipolar Integumentary: No Blood Disorders: No Physical Exam Vital Signs Vital Signs - First Documented Capillary Refill : Less Than 3 Seconds Height, Weight, BMI Height: '" Weight: lbs. oz. kg; 45.00 BMI Method: General Appearance: No Apparent Distress, WD/WN, Obese HEENT: PERRL/EOMI, Normal ENT Inspection Neck: Normal Inspection Respiratory: No Accessory Muscle Use, No Respiratory Distress; No Crackles; Wheezing (mild), Other (mildly prolonged expiratory phase) Cardiovascular: Regular Rate, Rhythm, No Edema, No Murmur Extremity: Normal Inspection, No Pedal Edema Neurologic/Psychiatric: Alert, Oriented x3, No Motor/Sensory Deficits, Normal Mood/Affect Skin: Normal Color, Warm/Dry Progress/Results/Core Measures Suspected Sepsis SIRS Temperature: Pulse: 81 Respiratory Rate: 18 Laboratory Tests 06/17/23 04:09: White Blood Count 9.1 Blood Pressure 129 /89 Mean: 102 Laboratory Tests 06/17/23 04:09: Platelet Count 295 Results/Orders Lab Results Laboratory Tests Test 06/17/23 03:54 06/17/23 04:09 Range/Units Influenza Type A (RT-PCR) Not Detected Not Detecte Influenza Type B (RT-PCR) Not Detected Not Detecte SARS-CoV-2 RNA (RT-PCR) Not Detected Not Detecte White Blood Count 9.1 4.3-11.0 10^3/uL Red Blood Count 3.15 L 3.80-5.11 10^6/uL Hemoglobin 7.8 L 11.5-16.0 g/dL Hematocrit 27 L 35-52 % Mean Corpuscular Volume 84 80-99 fL Mean Corpuscular Hemoglobin 25 25-34 pg Mean Corpuscular Hemoglobin Concent 29 L 32-36 g/dL Red Cell Distribution Width 17.6 H 10.0-14.5 % Platelet Count 295 130-400 10^3/uL Mean Platelet Volume 10.7 9.0-12.2 fL Immature Granulocyte % (Auto) 1 % Neutrophils (%) (Auto) 73 42-75 % Lymphocytes (%) (Auto) 17 12-44 % Monocytes (%) (Auto) 5 0-12 % Eosinophils (%) (Auto) 4 0-10 % Basophils (%) (Auto) 0 0-10 % Neutrophils # (Auto) 6.6 1.8-7.8 10^3/uL Lymphocytes # (Auto) 1.6 1.0-4.0 10^3/uL Monocytes # (Auto) 0.4 0.0-1.0 10^3/uL Eosinophils # (Auto) 0.3 0.0-0.3 10^3/uL Basophils # (Auto) 0.0 0.0-0.1 10^3/uL Immature Granulocyte # (Auto) 0.1 0.0-0.1 10^3/uL My Orders Orders - DOMENIC FROST MD Covid 19 Inhouse Test (06/17/23 03:52) Influenza A And B By Pcr (06/17/23 03:52) Cbc With Automated Diff (06/17/23 04:00) Ed Iv/Invasive Line Start (06/17/23 04:00) Albuterol Hfa Inhaler (Albuterol Hfa Inh (06/17/23 04:27) Vital Signs/I&O 06/17/23 06/17/23 06/17/23 03:49 03:49 05:13 Temp 37.1 Pulse 81 84 Resp 18 18 B/P (MAP) 129/89 (102) 124/81 Pulse Ox 95 96 O2 Delivery Room Air Room Air Room Air Capillary Refill : Less Than 3 Seconds Blood Pressure Mean: 102 Progress Note : Progress Note Labs were obtained, reviewed, compared with prior, and interpreted by me. Hemoglobin improved to 7.8. Flu/COVID swabs were negative. Albuterol inhaler provided relief. Departure Impression Primary Impression: Wheezing Additional Impression: anemia Disposition: 01 HOME, SELF-CARE Condition: Improved Departure-Patient Inst. Decision time for Depature: 04:53 Referrals: LEO DIGGS APRN (PCP/Family) Primary Care Physician Patient Instructions: Wheezing Add. Discharge Instructions: Your shortness of breath is probably due to multiple factors including anemia and wheezing. Your wheezing may be triggered by allergies. Try taking a long- acting antihistamine such as Claritin (loratadine), Zyrtec (cetirizine), etc. Use your inhaler up to 4 puffs in a 4-hour period of time for shortness of breath or wheezing. Follow-up with your primary care provider to discuss your breathing further and to monitor your hemoglobin. Return to care if you have worsening symptoms despite following these instructions. All discharge instructions reviewed with patient and/or family. Voiced understanding. Copy Copies To 1: GARLAND HUSSEIN MD Copies To 2: [facility]/DOMENIC OKEEFE MD Jun 17, 2023 04:59
[2023-06-17 05:13] VITALS: BP 124/81
== END 2023-06-17 05:13 | disposition home or self-care (01) ==
LOC: EDUNIT# 03:42 → ER 03:45
DX: O90.89 Other complications of the puerperium, not elsewhere classified (principal); R06.2 Wheezing; O90.81 Anemia of the puerperium; Z20.822 Contact with and (suspected) exposure to COVID-19; Z87.891 Personal history of nicotine dependence
CPT/HCPCS: 36415; 85025; 87636

== ENCOUNTER 2023-06-22 19:07 | Emergency (ER) | payer MEDICAID ==
[~2023-06-22] VITALS: Ht 160 cm; Wt 112.0 kg
[2023-06-22 19:12] VITALS: BP 138/84
[2023-06-22] MEDS ORDERED: RX-TRIMETH/SULFA. 160-800 MG (BACTRIM DS) TAB PPK#2 PO STA (19:31)
[2023-06-22] MEDS ORDERED: RX-MUPIROCIN (BACTROBAN) 2% OINT 22 GM TUBE TOP STA (19:31)
[2023-06-22] MEDS ORDERED: SULF1TAB38 PO (19:34)
--- NOTE | 2023-06-22 19:34 | ED Integumentary General ---
General Chief Complaint: Skin/Wound Problems Stated Complaint: SORE ON ABD. Nursing Triage Note: SORE ON LOWER ABDOMEN X2 DAYS. Allergies and Home Medications Allergies Coded Allergies: codeine (Verified Allergy, Severe, HIVES, 09/28/22) Patient Home Medication List Ferrous Sulfate (Ferosul) 325 Mg (65 Mg Iron) Tablet, 325 MG PO DAILY Prescribed by: GARLAND HUSSEIN on 06/14/23 0940 Ibuprofen (Ibu) 600 Mg Tablet, 600 MG PO Q6H Prescribed by: GARLAND HUSSEIN on 06/14/23 0940 Vit No.124/Iron/FA ( Vitamin Tablet) 27 Mg Iron-800 Mcg Tablet, 1 EACH PO DAILY, (Reported) Entered as Reported by: PETER PALACIO on 03/16/23 6849 Past Qnpuiyr-Tvlprh-Ufdrrp Hx Patient Social History Tobacco Use?: No Substance use?: No Alcohol Use?: No Pt feels they are or have been: No Immunizations Up To Date Tetanus Booster (TDap): Less than 5yrs First/Initial COVID19 Vaccinat: YES Second COVID19 Vaccination Edwardo: Y Third COVID19 Vaccination Date: YES Past Medical History Surgery/Hospitalization HX: TONSILLECTOMY, ashtma, bipolar Surgeries: Yes Tonsillectomy Respiratory: Yes Asthma Cardiac: No Neurological: No Reproductive Disorders: No Genitourinary: No Gastrointestinal: No Musculoskeletal: No Endocrine: No HEENT: No Cancer: No Psychosocial: Yes Bipolar Integumentary: No Blood Disorders: No Physical Exam Vital Signs Vital Signs - First Documented 06/22/23 19:12 Temp 36.8 Pulse 86 Resp 16 B/P (MAP) 138/84 (102) Pulse Ox 95 O2 Delivery Room Air Capillary Refill : Less Than 3 Seconds Progress/Results/Core Measures Results/Orders Vital Signs/I&O 06/22/23 19:12 Temp 36.8 Pulse 86 Resp 16 B/P (MAP) 138/84 (102) Pulse Ox 95 O2 Delivery Room Air Blood Pressure Mean: 102 Departure Impression Primary Impression: Abdominal wall cellulitis Disposition: 01 HOME, SELF-CARE Condition: Stable Departure-Patient Inst. Decision time for Depature: 19:32 Referrals: GARLAND HUSSEIN MD, MAYRA L APRN (PCP) Primary Care Physician Patient Instructions: Cellulitis (Skin Infection), Adult ED Add. Discharge Instructions: CLEAN AREA TWICE A DAY WITH ANTIBACTERIAL SOAP AND WATER, APPLY ANTIBIOTIC OINTMENT AND FRESH DRESSING TWICE A DAY TYLENOL AND MOTRIN NEEDED FOR PAIN FOLLOW UP WITH [facility] IN 2-3 DAYS FOR FURTHER CARE--CALL IN THE MORNING TO SCHEDULE AN APPOINTMENT All discharge instructions reviewed with patient and/or family. Voiced understanding. Scripts Sulfamethoxazole/Trimethoprim (Bactrim Ds Tablet) 1 Each Tablet 1 EACH PO BID, #20 TAB Prov: TG BROWN DO 06/22/23 TG BROWN DO Jun 22, 2023 19:34
== END 2023-06-22 19:39 | disposition home or self-care (01) ==
LOC: EDUNIT# 19:07 → ER 19:09
DX: L03.311 Cellulitis of abdominal wall (principal)
CPT/HCPCS: 87070; 87205; 99282